=== PATIENT | female | born 1995 | race Caucasian/White ===

== ENCOUNTER 2020-04-02 15:28 | Outpatient (CLI) | payer BC, SELFPAY ==
[2020-04-02 16:13] LABS: SARS-CoV-2 Ag Negative (Negative)
== END 2020-04-02 15:29 | disposition home or self-care (01) ==
PROVIDERS: PCP Internal Medicine; Visit Provider Internal Medicine
DX: Z20.828 Contact with and (suspected) exposure to other viral communicable diseases (principal)
CPT/HCPCS: 87426

== ENCOUNTER 2020-04-22 16:27 | Outpatient (CLI) | payer BC, SELFPAY ==
[2020-04-24 12:24] LABS: SARS-CoV-2 RNA PCR Positive
== END 2020-04-22 16:28 | disposition home or self-care (01) ==
LOC: CHSLAB 16:29
PROVIDERS: PCP Internal Medicine; Visit Provider Internal Medicine
DX: U07.1 COVID-19 (principal)
CPT/HCPCS: 87635; C9803; U0003

== ENCOUNTER 2020-05-23 07:32 | Outpatient (CLI) | payer BC, SELFPAY ==
--- NOTE | ~2020-05-23 | US_ITS ---
EXAMINATION: US OB <= 14 weeks fetus DATE: 05/23/2020 08:36 INDICATION: Suppression of menstruation, first trimester TECHNIQUE: Real-time pelvic transabdominal and transvaginal ultrasound was performed. COMPARISON: None. FINDINGS: The uterus measures 12.6 x 8.0 x 10.6 cm. There is an intrauterine gestational sac. heart motion is identified measuring 150 beats per minute (bpm) by M-mode Doppler. The crown ru mp length measures 7.1 cm , which correlates with an estimated gestational age of 13 weeks and 2 day( s) (+/-) 8 day(s). The right ovary measures 2.9 x 1.3 x 1.6 cm. The left ovary measures 3.3 x 2.0 x 2.7 cm. There is nor mal vascular flow in the ovaries. There is no free fluid in the pelvis. IMPRESSION: 1. Live intrauterine with an estimated gestational age of 13 weeks and 2 day(s) (+/-) 8 day (s) and an estimated delivery date of 11/26/2020. Reviewed, dictated and finalized at location A. OFFICER IMPRESSION: 1. Live intrauterine with an estimated gestational age of 13 weeks an d 2 day(s) (+/-) 8 day(s) and an estimated delivery date of 11/26/2020.
[2020-05-23 07:49] LABS: Basophils Absolute Auto 0.06 K/mm3 (0.00-0.10); Basophils Percent Auto 0.6 % (0.0-1.0); Eosinophils Absolute Auto 0.07 K/mm3 (0.02-0.50); Eosinophils Percent Auto 0.7 % (1.0-6.0); Hematocrit 32.8 % (35.0-49.0); Hemoglobin 11.5 g/dL (12.0-15.0); Immature Granulocyte Absolute 0.03 K/mm3 (0.00-0.00); Immature Granulocyte Percent A 0.3 % (0.0-0.0); Lymphocytes Percent Auto 20.9 % (18.0-42.0); Mean Corpuscular HGB Conc 35.1 g/dL (32.0-36.0); Mean Corpuscular Hemoglobin 28.8 pg (27.0-31.0); Mean Corpuscular Volume 82.2 fL (78.0-102.0); Mean Platelet Volume 9.7 fl (9.2-11.8); Neutrophils Absolute Auto 7.2 K/mm3 (1.7-7.2); Neutrophils Percent Auto 71.5 % (50.0-70.0); Platelet Count Result 264 K/mm3 (150-420); Red Blood Count 3.99 M/mm3 (4.20-5.40); Red Cell Distribution Width 12.3 % (11.6-14.4); White Blood Count 10.1 K/mm3 (4.8-10.8)
[2020-05-25 21:21] LABS: RPR Screen Non-Reactive (Non-Reactive)
[2020-05-26 20:58] LABS: CMV IgG Antibody <0.60 U/mL (<0.60)
[2020-05-28 05:11] LABS: Hepatitis B Surface Antigen Nonreactive (Nonreactive)
== END 2020-05-23 07:33 | disposition home or self-care (01) ==
PROVIDERS: PCP Internal Medicine; Visit Provider Obstetrics & Gynecology
DX: N92.5 Other specified irregular menstruation (principal)
CPT/HCPCS: 36415; 76801; 84702; 85025; 86592; 86644; 86747; 86787; 87086; 87088

== ENCOUNTER 2020-07-04 14:52 | Outpatient (CLI) | payer BC, SELFPAY ==
--- NOTE | ~2020-07-04 | US_ITS ---
CORRECTED REPORT Procedure description corrected. [facility] [place] EXAMINATION: US OB >= 14 weeks Fetus DATE: 07/04/2020 17:44 INDICATION: anatomic survey. TECHNIQUE: Real-time ultrasound of the pelvis was performed. COMPARISON: Ultrasound 05/23/2020 FINDINGS: There is a single living fetus in vertex presentation. The placenta is anterior, 3.5 cm from the cervix. heart rate is 141 beats per minute (bpm). The amniotic fluid volume is subjectively normal. The following biometric data were obtained: Biparietal diameter (BPD): 4.4 cm; head circumference (HC): 17.0 cm; abdominal circumference (AC): 13.7 cm; femur length (FL): 3.2 cm. These measurements are concordant. Estimated weight is 296 g +/- 44 g, which correlates with 58th percentile when 11/26/20 is used as estimated date of delivery. As single measurements, these parameters are each equal to the following estimated gestational ages: BPD: 19 weeks 3 days. HC: 19 weeks 4 days. AC: 19 weeks 1 days. FL: 19 weeks 6 days. estimated gestational age based solely on measurements from this exam is 19 weeks 4 days +/- 1 weeks 3 days. The cerebral ventricles, cerebellum, cisterna magna, nuchal fold, and visualized portions of the spine are normal. The heart is normal. The diaphragm, stomach, kidneys, and bladder are normal. There are two umbilical arteries to yield a 3- vessel cord. The cord insertion is normal. IMPRESSION: 1. Single living fetus in vertex presentation. 2. Estimated weight is 296 g +/- 44 g, which correlates with 58th percentile when 11/26/20 is used as estimated date of delivery. This date was set by ultrasound on 05/23/20. 3. Normal anatomic survey. Reviewed, dictated and finalized at location A. ARTIST MTDD IMPRESSION: 1. Single living fetus in vertex presentation. 2. Estimated weight is 296 g +/- 44 g, which correlates with 58th percen tile when 11/26/20 is used as estimated date of delivery. This date was set by [address] on 05/23/20. 3. Normal anatomic survey.
[2020-07-04 16:35] LABS: HIV 1 P24 AG Negative (Negative); HIV 1/2 AB Negative (Negative)
[2020-07-08 10:02] LABS: Rubella IgG Antibody 2.53 Index
== END 2020-07-04 14:53 | disposition home or self-care (01) ==
LOC: CHSIMG 14:55
PROVIDERS: PCP Internal Medicine; Visit Provider Obstetrics & Gynecology
DX: Z34.92 Encounter for supervision of normal pregnancy, unspecified, second trimester (principal)
CPT/HCPCS: 36415; 76802; 76805; 86703; 86762; 86850; 86900; 86901

== ENCOUNTER 2020-09-05 08:19 | Outpatient (CLI) | payer BC, SELFPAY ==
[2020-09-05 08:34] LABS: Hematocrit 31.9 % (35.0-49.0); Hemoglobin 10.8 g/dL (12.0-15.0)
[2020-09-05 09:07] LABS: Glucose 1 Hour PP 50gm Dose 146 mg/dL (70-130)
[2020-09-05 09:21] LABS: HIV 1 P24 AG Negative (Negative); HIV 1/2 AB Negative (Negative)
== END 2020-09-05 08:20 | disposition home or self-care (01) ==
PROVIDERS: PCP Internal Medicine; Visit Provider Obstetrics & Gynecology
DX: Z34.92 Encounter for supervision of normal pregnancy, unspecified, second trimester (principal)
CPT/HCPCS: 36415; 82947; 85014; 85018; 86703

== ENCOUNTER 2020-09-12 07:05 | Outpatient (CLI) | payer BC, SELFPAY ==
[2020-09-12 07:40] LABS: Glucose Fasting Gestational 90 mg/dL (>/=95)
[2020-09-12 08:46] LABS: Glucose 1 Hour Gest 164 mg/dL (70-130)
[2020-09-12 11:20] LABS: Glucose 2 Hour Gest 150 mg/dL (<155)
[2020-09-12 11:25] LABS: Glucose 3 Hour Gest 120 mg/dL (>/=140)
== END 2020-09-12 07:06 | disposition home or self-care (01) ==
LOC: CHSLAB 07:08
PROVIDERS: PCP Internal Medicine; Visit Provider Obstetrics & Gynecology
DX: R73.09 Other abnormal glucose (principal)
CPT/HCPCS: 36415; 82951; 82952

== ENCOUNTER 2020-11-20 06:00 | Inpatient (IN) | payer BC, SELFPAY ==
[2020-11-20] VITALS (55 sets, daily range): BP systolic 121–148; BP diastolic 61–86; PULSE 67–105; RESP 16–20; TEMP 36.3–36.9; O2SAT 99–100; BMI 41.5
[2020-11-20] MEDS: LACTATED RINGERS 1,000 ML 125 ML IV CONT ×2 (06:30→07:30)
--- NOTE | 2020-11-20 06:39 | LDADM ---
This patient, Karis Sandoval, was admitted to Labor/Delivery/Recovery 103 on 11/20/20 at 06:00. Plans for labor, pain management and were discussed with patient. Patient/family oriented to hospital policies and general routines including ID bracelet, bed and alarms, visiting hours, pain management, procedures, bathroom and other care routines, personal items, smoking policy, room service/diet and guest tray routines, infant security routines, and visiting hours. Patient/Family are encouraged to report perceived risks to care and to ask questions if they do not understand what they are told or what they should do. See OBIX for further documentation.
[2020-11-20 06:51] LABS: Basophils Absolute Auto 0.1 K/mm3 (0.0-0.1); Basophils Percent Auto 0.6 % (0.2-1.2); Eosinophils Absolute Auto 0.1 K/mm3 (0-0.3); Eosinophils Percent Auto 0.6 % (0-4.4); Hematocrit 32.4 % (37.0-47.0); Hemoglobin 10.6 g/dL (12.0-15.0); Immature Granulocyte Absolute 0.05 K/mm3 (0.00-0.031); Immature Granulocyte Percent A 0.4 % (0-0.5); Lymphocytes Absolute Auto 2.62 K/mm3 (0.9-3.2); Lymphocytes Percent Auto 21.2 % (18.3-44.2); Mean Corpuscular HGB Conc 32.7 g/dl (32-36); Mean Corpuscular Hemoglobin 26.1 pg (26-34); Mean Corpuscular Volume 79.8 fl (80-100); Mean Platelet Volume 10.9 fl (7.4-10.4); Monocytes Percent Auto 7.9 % (2.6-8.5); Neutrophils Absolute Auto 8.6 K/mm3 (1.3-6.7); Neutrophils Percent Auto 69.3 % (45.5-73.1); Platelet Count Result 288 k/mm3 (150-375); Red Blood Count 4.06 M/mm3 (4.2-5.4); Red Cell Distribution Width 13.7 % (11.5-14.5); White Blood Count 12.3 K/mm3 (4.5-10.0)
--- NOTE | 2020-11-20 07:26 | P.PNAN_ITS ---
Anes - Initial Pre Proc Eval Date/Time: 11/20/20 07:26 Surgeon: Marciano Mitchell MD Pre Op Diagnosis: induction of labor Patient Data Age: 25 Gender: F Height: 1.7 m Weight: 120.5 kg Last Vital Signs Temp 36.9 C 11/20/20 06:30 Pulse 87 11/20/20 06:46 BP 133/77 11/20/20 06:46 Allergies Allergy/AdvReac Type Severity Reaction Status Date / Time No Known Allergies Allergy Unverified 09/24/18 13:03 Home Medications Medication Instructions Recorded Confirmed Type PNV cmb#95-ferrous fumarate-FA 1 tablet PO DAILY 11/02/20 11/20/20 History [] sertraline [Zoloft] 50 mg PO DAILY 11/20/20 11/20/20 History Laboratory Tests 11/20/20 11/20/20 06:33 06:33 WBC 12.3 K/mm3 H K/mm3 (4.5-10.0) RBC 4.06 M/mm3 L M/mm3 (4.2-5.4) Hgb 10.6 g/dL L g/dL (12.0-15.0) Hct 32.4 % L % (37.0-47.0) MCV 79.8 fl L fl (80-100) MCH 26.1 pg pg (26-34) MCHC 32.7 g/dl g/dl (32-36) RDW 13.7 % % (11.5-14.5) Plt Count 288 k/mm3 k/mm3 (150-375) MPV 10.9 fl H fl (7.4-10.4) Immature Gran % (Auto) 0.4 % % (0-0.5) Neut % (Auto) 69.3 % % (45.5-73.1) Lymph % (Auto) 21.2 % % (18.3-44.2) [place] % (Auto) 7.9 % % (2.6-8.5) Eos % (Auto) 0.6 % % (0-4.4) Baso % (Auto) 0.6 % % (0.2-1.2) Lymph # (Auto) 2.62 K/mm3 K/mm3 (0.9-3.2) [place] # (Auto) 1.0 K/mm3 H K/mm3 (0.1-0.6) Eos # (Auto) 0.1 K/mm3 K/mm3 (0-0.3) Baso # (Auto) 0.1 K/mm3 K/mm3 (0.0-0.1) Abs Immat Gran (auto) 0.05 K/mm3 H K/mm3 (0.00-0.031) Absolute Neuts (auto) 8.6 K/mm3 H K/mm3 (1.3-6.7) Absolute Nucleated RBC 0.0 K/mm3 K/mm3 (0.0-0.012) Nucleated RBC % 0.0 % % (0.0-0.2) RPR Pending Patient hx anesthesia problems: none Family hx anesthesia problems: none [facility] Family History Family History (Updated 11/02/20 @ 12:29 by Otto Allred RN) Mother Diabetes mellitus Grandparent Diabetes mellitus Other Breast cancer Father Heart disease Social History Social History Smoking status: Never smoker Substance use: never Gender identity (if verbalized by the patient): Female Spiritual care concerns: No Anes - Eval Final PreProcedure Day of Procedure 11/20/20 07:26 Patient weight: obese Heart: regular rate and rhythm Lungs: clear to auscultation and normal air movement Airway: Mallampati scale class II Neurological: alert and oriented Last oral intake: >/= 8 hours ASA classification: III Emergent: no Anesthetic plan: proceed Anesthesia type and monitoring: regional epidural Informed Consent: The patient's anesthetic plan and its attendant risks and benefits were discussed with the patient/family/POA. Questions were solicited and answers provided to the satisfaction of the patient/family/POA
[2020-11-20] MEDS: OXYTOCIN 30 UNITS/NS 500 ML 30 UNITS/500 ML BAG IV CONT (08:04)
--- NOTE | 2020-11-20 10:03 | WPDHPUPDATE1 ---
History and Physical Update Update Date/Time: 11/20/20 10:03 History and Physical has been reviewed, including an updated exam of the patient. There are NO changes in the patient's condition. Risks, benefits, and alternatives have been discussed and questions answered. Patient agrees to proceed with procedure.
--- NOTE | 2020-11-20 10:03 | WPDOBADMIT ---
Obstetrics - Admit Note Admission Note: record reviewed. No pertinent additions to the history and/or any subsequent changes in the physical findings that are not consistent with the expected course of the were found. Additions to the history and/or subsequent changes in the physical findings follow. None.
--- NOTE | 2020-11-20 10:03 | PM.OBPRVD ---
OB - Delivery Note Procedure Route of delivery: Episiotomy description: None Laceration Description: None Specimen: No Quantitative Blood Loss (ml): 300 Anesthesia type: Epidural Disposition: floor Narrative: Patient prepped and draped in usual manner for this procedure. Maternal expulsive efforts readily delivered vertex and the rest of baby without difficulty. Cord was clamped and cut and the placenta delivered spontaneously. Cervix vagina vulva were inspected with no lacerations or tears. Uterus was well contracted with no significant bleeding. At this point procedure was considered terminated with immediate postoperative condition mother and baby both excellent. [place] Baby Weeks of gestation at delivery: 39 Infant gender: Female Weight (pounds): 8 Weight (ounces): 6 score one minute: 8 score five minutes: 9
[2020-11-20] MEDS: OXYTOCIN 30 UNITS/NS 500 ML 30 UNITS/500 ML BAG 125 UNITS IV CONT (10:24)
[2020-11-20 10:31] LABS: Rapid Plasma Reagin Non-Reactive (NonReactive)
[2020-11-20] MEDS: IBUPROFEN 600 MG TABLET PO ×2 (11:51→20:15)
[2020-11-20] MEDS: WITCH HAZEL 40 PADS 1 PAD TOPICAL (11:56)
[2020-11-20] MEDS: BENZOCAINE 20% AER SPR (*SP) 56 GM CAN 1 SPRAY TOPICAL (11:56)
--- NOTE | 2020-11-20 13:10 | PC.NURSE ---
Mother called out for assist with feeding, reporting first child a few weeks and low milk supply. Infant is able to freely thrust tongue past gum ridge. Skin is intact on both nipples, dried colostrum noted bilaterally. Reviewed infant feeding cues, frequencies, duration of feedings, feeding elimination flow sheet, and signs of adequate intake. Demonstrated stimulation techniques to wake infant for feeding. Assisted with to breast. Reviewed positioning/alignment in cross cradle, holding breast in ?U? hold and guided asymmetrical latch on. able to latch correctly. Infant nursed eagerly, with steady draws and frequent swallowing noted. Suggested mother stimulate while feeding to increase stimulate, increase intake and to assist with maintaining deep latch. Reviewed signs of a correct latch, effective nursing and suck swallow ratio. Infant would slip to shallow latch, mother reports tenderness. Demonstrated how to adjust latch more deeply while feeding. Mother reports she can feel change in latch and has no tenderness. Nipple care reviewed of lanolin after feedings, warm compresses and gel pads as needed. Instructed mother to call out for RN assistance if she is unable to latch for feeding or she has discomfort with nursing.
--- NOTE | 2020-11-20 13:45 | PC.NURSE ---
Mother reported bleeding to right nipple. Area noted to have dried colostrum and small amount of skin off with nursing. Reviewed nipple care of lanolin and warm compress as needed several times per day.
[2020-11-20] MEDS: ACETAMINOPHEN 325 MG TABLET 650 MG PO (16:16)
[2020-11-20] MEDS: DOCUSATE SODIUM 100 MG CAPSULE PO (16:16)
[2020-11-20] MEDS: SERTRALINE HCL 50 MG TABLET PO (21:15)
[2020-11-21] MEDS: ACETAMINOPHEN 325 MG TABLET 650 MG PO (01:17)
[2020-11-21] MEDS: IBUPROFEN 600 MG TABLET PO ×3 (04:45→20:25)
[2020-11-21 08:25] VITALS: BP 136/83; PULSE 75; RESP 18; TEMP 36.8; O2SAT 100
[2020-11-21 08:45] LABS: Hematocrit 30.8 % (37.0-47.0); Hemoglobin 9.9 g/dL (12.0-15.0)
[2020-11-21 09:00] VITALS: PULSE 75; RESP 18; O2SAT 100
[2020-11-21] MEDS: POLYSACCHARIDE IRON COMPLEX 150 MG CAPSULE PO (09:17)
[2020-11-21] MEDS: DOCUSATE SODIUM 100 MG CAPSULE PO ×2 (09:18→20:25)
[2020-11-21] MEDS: MULTIVIT/MIN/PREN/FOL AC/IRON TABLET 1 TAB PO (09:18)
--- NOTE | 2020-11-21 09:45 | PC.NURSE ---
Mother reports is going well, she is able to independently latch infant with appropriate positioning/alignment. She denies any nipple discomfort, is feeding as required and waking infant to feed if needed. Requested mother call out for assist as needed.
--- NOTE | 2020-11-21 12:14 | WPDANLDPN2 ---
Anes-Prog Note L&D Date/Time: 11/21/20 12:14 Comfortable throughout: labor and delivery Neuraxial method: epidural Epidural/Spinal procedure site: clean & non-tender Neuro status: Neuro function grossly intact. Cardiovascular status: normal Respiratory status: normal Airway patency: baseline Mental status: baseline Post-Op hydration status: normal Vital Signs: Last Vital Signs Temp 36.8 C 11/21/20 08:25 Pulse 75 11/21/20 09:00 Resp 18 11/21/20 09:00 BP 136/83 11/21/20 08:25 Pulse Ox 100 11/21/20 09:00 Pain score (VAS): 05/19 Post-procedural complaints: none Patient feedback: Patient satisfied with anesthetic care.
--- NOTE | 2020-11-21 13:21 | PM.OBDSVD ---
DS: Admitting Diagnosis Admitting Diagnosis Admitting Diagnosis: OB - DS: Summary OB Procedures : None OB Procedures Intrapartum: Spontaneous Vag Delivery OB Procedures: : None Time Spent with Patient Time attestation: Total time spent providing and/or coordinating discharge services: DS: Data Data Completed and Pending Labs on day of discharge: Labs from last 24 hours 11/21/20 08:15 Hgb 9.9 L Hct 30.8 L Discharge Plan Discharge Discharging Clinician: Marciano Mitchell Anticipated Discharge Date/Time: 11/22/20 08:00 Patient Disposition: Home, Self-Care Activity: as tolerated Diet: as tolerated Patient Instructions: Antibiotic Form Stand Alone Forms: General Discharge Information Follow-up/Referrals: Marciano Mitchell MD [Physician] - 3 Weeks Discharge Medications: New ibuprofen 600 mg Tablet 600 mg PO Q6H PRN (Reason: Cramping) Qty: 30 RF: 0 Continued PNV cmb#95-ferrous fumarate-FA [] 28 mg iron- 800 mcg Tablet 1 tablet PO DAILY RF: 0 sertraline [Zoloft] 50 mg Tablet 50 mg PO DAILY RF: 0 Date of admission: 11/20/20 06:00 Primary Care Provider: Isaac Floyd Admitting Provider: Marciano Mitchell Attending physician on admission: Marciano Mitchell Condition: Stable
[2020-11-21 20:25] VITALS: BP 128/77; PULSE 76; RESP 16; TEMP 36.7
[2020-11-21] MEDS: SERTRALINE HCL 50 MG TABLET PO (20:25)
--- NOTE | 2020-11-22 08:45 | PC.NURSE ---
Observed mother is able to independently latch with appropriate positioning/alignment. She denies any nipple discomfort, is feeding as required and waking infant to feed if needed. has had at least 8 effective feedings in the past 24 hours, and is currently meeting outcomes for weight, jaundice and feeding frequencies. Infant did go past 12 hours without a wet diaper. Suggested mother supplement 15mls after each feeding until her milk is in and output increases. Mother had an issue with low milk supply with first child. Mother states she feels confident to continue effective at home. Reviewed transition to breast milk, signs of adequate intake, and engorgement/relief. Instructed to call ICP if intake/output less than required. Reviewed regular medications mother is taking. Information provided per Danielle. Reviewed community resources on the [facility] website and in the Mom/Baby guide. Information on outpatient services provided. Mother has no further questions at this time.
[2020-11-22] MEDS: MULTIVIT/MIN/PREN/FOL AC/IRON TABLET 1 TAB PO (09:42)
[2020-11-22] MEDS: POLYSACCHARIDE IRON COMPLEX 150 MG CAPSULE PO (09:42)
[2020-11-22] MEDS: DOCUSATE SODIUM 100 MG CAPSULE PO (09:42)
[2020-11-22] MEDS: IBUPROFEN 600 MG TABLET PO (09:43)
[2020-11-22 10:00] VITALS: BP 146/80; PULSE 87; RESP 18; TEMP 36.4; O2SAT 99
[2020-11-22 11:45] VITALS: PULSE 76; RESP 16; O2SAT 100
[2020-11-25 11:28] VITALS: BP 132/82; PULSE 96; RESP 20; TEMP 37.1; O2SAT 100
--- NOTE | 2020-11-26 07:18 | PM.OBDSVD ---
DS: Admitting Diagnosis Admitting Diagnosis Admitting Diagnosis: OB - DS: Summary OB Procedures : None OB Procedures Intrapartum: Spontaneous Vag Delivery OB Procedures: : None Time Spent with Patient Time attestation: Total time spent providing and/or coordinating discharge services: Discharge Plan Discharge Consulting providers: Lexa Hernandez Discharging Clinician: Marciano Mitchell Anticipated Discharge Date/Time: 11/22/20 08:00 Patient Disposition: Home, Self-Care Activity: as tolerated Diet: as tolerated Discharge Instructions: Education: Mom and Baby Guide Given to: Mother Follow-Up: Call your delivering provider's office for an appointment to be seen in: 3 weeks Mom and baby should come to the [facility] for the follow-up appointment. Appointment Date/Time:Wednesday, November 25, 2020 at 11:00 am What to expect at your follow-up visit: Blood Pressure Check Physical Assessment Call [phone] if you are unable to keep your appointment time. BREAST CARE: * Wear a snug supportive bra. * For engorgement discomfort: Breast Feeding: * Apply warm moist washcloths * Express milk as needed to relieve engorgement * Wear loose clothing * For sore nipples: * Identify correct latch-on * Apply warm moist washcloths before and after nursing * Air dry nipples after nursing * May apply Lansinoh cream to nipples EPISIOTOMY/PERINEAL CARE: * Until bleeding stops, use your maria e bottle after urinating * Change your pad frequently throughout the day * You may take sitz baths several times a day (fill your bathtub with warm water and soak for 20 minutes.) Do NOT bathe in the water * No tub baths until seen by your physician - You may shower ACTIVITY: * Rest as much as possible. * Do not exercise or lift anything heavier than your baby (such as laundry or other children.) * Avoid stairs or driving as much as possible. * Do not put anything into the vagina. No douching, tampons, or sexual activity until seen by physician. NOTIFY PHYSICIAN IF YOU HAVE ANY QUESTIONS OR IF ANY OF THE FOLLOWING SYMPTOMS OCCUR: * If your vaginal area becomes red, swollen, or more painful than what you have experienced in the hospital. * If your vaginal bleeding becomes foul smelling. * If your vaginal bleeding becomes more heavy than a period or if your bleeding changes from pink to bright red. However, you may pass an occasional walnut-sized clot once or twice for the first week . * If you experience a sharp, shooting pain in your calves. * If you discover a hard, reddened area on your breast or if you experience flu-like symptoms. DIET: * Eat regular, well-balanced meals. * Drink plenty of fluids daily. If , drink to thirst. Patient Instructions: Vaginal Delivery (DC) Stand Alone Forms: General Discharge Information Follow-up/Referrals: Marciano Mitchell MD [Physician] - 3 Weeks Discharge Medications: New ibuprofen 600 mg Tablet 600 mg PO Q6H PRN (Reason: Cramping) Qty: 30 RF: 0 Continued PNV cmb#95-ferrous fumarate-FA [] 28 mg iron- 800 mcg Tablet 1 tablet PO DAILY RF: 0 sertraline [Zoloft] 50 mg Tablet 50 mg PO DAILY RF: 0 Date of admission: 11/20/20 06:00 Primary Care Provider: Isaac Floyd Admitting Provider: Marciano Mitchell Attending physician on admission: Marciano Mitchell Condition: Stable
== END 2020-11-22 14:05 | disposition home or self-care (01) | DRG 807 ==
LOC: ANHLDR 06:05 → ANHOB2 12:18
PROVIDERS: Admitting Provider Obstetrics & Gynecology; PCP Internal Medicine; Visit Provider Obstetrics & Gynecology
DX: O99.214 Obesity complicating childbirth (principal); Z37.0 Single live birth; Z3A.39 39 weeks gestation of pregnancy; E66.9 Obesity, unspecified; O62.3 Precipitate labor
CPT/HCPCS: 36415; 85014; 85018; 85025; 86592; 86850; 86900; 86901; A9270; J2590; J2795; J7120

== ENCOUNTER 2021-05-15 13:44 | Outpatient (CLI) | payer BC, SELFPAY ==
[2021-05-15 15:13] LABS: Influenza Control Valid (Valid); SARS-CoV-2 Ag Negative (Negative)
== END 2021-05-15 13:45 | disposition home or self-care (01) ==
LOC: CHSLAB 13:46
PROVIDERS: PCP Internal Medicine; Visit Provider Internal Medicine
DX: J06.9 Acute upper respiratory infection, unspecified (principal); Z20.822 Contact with and (suspected) exposure to COVID-19
CPT/HCPCS: 87081; 87426; 87804; 87880; C9803

== ENCOUNTER 2021-12-26 16:05 | Outpatient (CLI) | payer BC, SELFPAY | END 2021-12-26 16:06 | disposition home or self-care (01) | LOC: CHSLAB 16:11 | PROVIDERS: PCP Internal Medicine; Visit Provider Obstetrics & Gynecology Gynecology | DX: O26.851 Spotting complicating pregnancy, first trimester (principal) | CPT/HCPCS: 36415; 84702; 86850; 86900; 86901 ==

== ENCOUNTER 2021-12-28 17:00 | Outpatient (CLI) | payer BC, SELFPAY | END 2021-12-28 17:01 | disposition home or self-care (01) | PROVIDERS: PCP Internal Medicine; Visit Provider Obstetrics & Gynecology Gynecology | DX: O26.851 Spotting complicating pregnancy, first trimester (principal) | CPT/HCPCS: 36415; 84702 ==

== ENCOUNTER 2021-12-31 12:15 | Outpatient (CLI) | payer BC, SELFPAY ==
--- NOTE | ~2021-12-31 | US_ITS ---
EXAMINATION: US OB <=14 wk fetus w TV DATE: 12/31/2021 12:59 INDICATION: Missed . Assess for retained products of conception. TECHNIQUE: Real-time pelvic ultrasound utilizing both a transvaginal and transabdominal probe was pe rformed. The interpreting radiologist was not present for the study. COMPARISON: 12/29/2021 FINDINGS: The uterus measures 9.2 x 5.7 x 6.4 cm. The previously seen gestational sac and fetus are no longer v isualized consistent with interval spontaneous . Persistent thickened heterogeneous endometri al complex measuring up to 1.8 cm. There is vascular flow within a solid posterior component of the e ndometrial complex consistent with retained products of conception. On cine grayscale imaging, much o f the endometrial complex appears filled with mobile echogenic material which could represent either additional retained products of conception or blood. The right ovary is not visualized. The left ovar y measures 2.9 x 1.9 x 1.6 cm. There is no free fluid in the pelvis. IMPRESSION: 1. Thickened endometrial complex without discernible gestational sac and with both mobile echogenic m aterial as well as some vascular solid soft tissue component posteriorly within the endometrial compl ex consistent with interval spontaneous with retained products of conception. Reviewed, dictated and finalized at location A. IMPRESSION: 1. Thickened endometrial complex without discernible gestational sac and with b oth mobile echogenic material as well as some vascular solid soft tissue compon ent posteriorly within the endometrial complex consistent with interval spontan eous with retained products of conception.
== END 2021-12-31 12:16 | disposition home or self-care (01) ==
LOC: CHSIMG 12:16
PROVIDERS: PCP Internal Medicine; Visit Provider Obstetrics & Gynecology
DX: O02.1 Missed abortion (principal)
CPT/HCPCS: 76801; 76817

== ENCOUNTER 2022-01-01 01:41 | Day surgery (SDC) | payer BC, SELFPAY ==
[2021-12-30 10:41] VITALS: BMI 40.7
--- NOTE | 2021-12-30 10:46 | PC.NURSE ---
Report to the Outpatient Waiting Room, entrance under the green pavilion located off [facility], at time 0630 on date 01/01/22. OR Time: 0830. - You and your visitor will be asked to self-screen and do not enter if you have any COVID symptoms. - Only one visitor and NO children visitors are allowed at this time. - The patient visitor is requested to leave or wait in car when not with patient due to restrictions. - A mask is required within the hospital. Patients may have clear liquids (water, carbonated beverages, clear teas, apple juice) until 3 hours prior to surgery with a maximum of 20 ounces. - No food from midnight until time of surgery Take the following medications with a SIP of water the morning of surgery: N/A Medications to discontinue per physician: N/A Date to take last dose: N/A Please no make-up, nail sl[place], hairspray, perfume, deodorant, or body powder the day of surgery. No jewelry (including any body piercings) or valuables the day of surgery, leave them at home. Please take a shower or bath the night before, or the morning of, surgery with an antibacterial soap. Wear comfortable, loose fitting clothing. - Jewelry must be removed prior to entering the operating room. Rings and piercings that are not removed may be cut off. - The hospital will not accept responsibility for valuables. - Please leave all valuables, including medications, at home the day of surgery. If you are going home after surgery, a licensed shuttle van driver must drive you home. - NO public transportation without another adult. - We recommend that an adult stay with you for 24 hours following discharge. - We also recommend that you do not drive, make important decision, drink alcoholic beverages, or take any drugs that were not prescribed by your health care provider for at least 24 hours after your discharge time. Follow any additional instructions given to you from your surgeon. If you or anyone in your household have experienced Covid symptoms in the past week, please notify your surgeon or the nurse liaison at the phone number below for possible testing. Telephone instructions given to PT - AARTI KUHN and asked if any additional questions and then verbalized understanding. Patient advised to call surgeon office or pre surgery nurse liaison [phone] if any additional questions.
--- NOTE | 2021-12-31 13:20 | WPDANESEPPF ---
Anes - Initial Pre Proc Eval Procedure: Operation Date: 01/01/22 08:30 Proposed Procedures p Suction Dilation and Curettage - Marciano Mitchell MD Date/Time: 12/31/21 13:20 Surgeon: Marciano Mitchell MD Pre Op Diagnosis: missed ab Patient Data Age: 26 Gender: F Height: 1.7 m Weight: 117.93 kg Allergies Allergy/AdvReac Type Severity Reaction Status Date / Time No Known Allergies Allergy Unverified 01/01/22 06:45 Home Medications Medication Instructions Recorded Confirmed Type No Home Medications 12/30/21 01/01/22 History Patient hx anesthesia problems: none Family hx anesthesia problems: none Results Review: All pre-operative results and documents have been reviewed as part of the pre-operative evaluation. [facility] Past Medical History Medical History AUDREY positive Morbid obesity with BMI of 40.0-44.9, adult Suppression of menstruation Surgical History Surgical History History of gynecological procedure (03/08/19) dick iud insertion History of gynecological procedure (01/25/20) dick iud removal Family History Family History Mother Diabetes mellitus Grandparent Diabetes mellitus Other Breast cancer Father Heart disease Social History Social History Smoking status: Never smoker Alcohol intake: never Alcohol use details: RARE Substance use: never Substance use type: does not use Living arrangements: with family Additional living arrangements comments: Additional occupation/education comments: engineering Gender identity (if verbalized by the patient): Female Sexual Orientation (if Verbalized by the Patient): Straight or Heterosexual Spiritual care concerns: No Anes - Eval Final PreProcedure Day of Procedure 12/31/21 13:20 Patient weight: morbidly obese Heart: regular rate and rhythm Lungs: clear to auscultation and normal air movement Airway: Mallampati scale class II Neurological: alert and oriented Last oral intake: >/= 8 hours ASA classification: III Emergent: no Anesthetic plan: proceed Anesthesia type and monitoring: general GIVS and LMA Results Review: All pre-operative results and documents have been reviewed as part of the pre-operative evaluation. Informed Consent: The patient's anesthetic plan and its attendant risks and benefits were discussed with the patient/family/POA. Questions were solicited and answers provided to the satisfaction of the patient/family/POA.
--- NOTE | 2021-12-31 15:50 | PM.IMHP ---
H&P: HPI History of Present Illness Date/Time: 12/31/21 15:50 26-year-old female 3 para 2 0 now 1 2 female presents for evaluation and treatment for incomplete miscarriage. Found to have 8 week intrauterine with no cardiac activity earlier this week since then has had a fairly significant amount of bleeding and passing of tissue. Ultrasound they prior to procedure reveals gestational sac to have been passed with a moderate amount of retained products of conception. We discussed expected management versus proceeding with suction curettage remove the remaining tissue and she opts for suction curettage which will be performed today. Chief Complaint: Incomplete miscarriage Review of Systems Review of Systems: All systems reviewed & are unremarkable except as noted in HPI and below PMFSH Past Medical History Medical History AUDREY positive Morbid obesity with BMI of 40.0-44.9, adult Suppression of menstruation Surgical History Surgical History History of gynecological procedure (03/08/19) dick iud insertion History of gynecological procedure (01/25/20) dick iud removal Family History Family History Mother Diabetes mellitus Grandparent Diabetes mellitus Other Breast cancer Father Heart disease Social History Social History Smoking status: Never smoker Alcohol intake: current Alcohol use details: RARE Substance use: never Substance use type: does not use Additional living arrangements comments: Additional occupation/education comments: engineering Gender identity (if verbalized by the patient): Female Sexual Orientation (if Verbalized by the Patient): Straight or Heterosexual Spiritual care concerns: No Meds Home Medications and Allergies Home Medications Medication Instructions Recorded Confirmed Type No Home Medications 12/30/21 12/30/21 History Allergies Allergy/AdvReac Type Severity Reaction Status Date / Time No Known Allergies Allergy Unverified 12/30/21 10:41 Exam Const: General: cooperative, healthy appearing and comfortable Resp: Effort & Inspection: normal respiratory effort Auscultation: clear to auscultation bilaterally Cardio: Rate: regular rate Rhythm: regular rhythm GI: Inspection: normal to inspection Auscultation: normal bowel sounds : Speculum Exam - Vagina: other (Old blood in vault) Speculum Exam - Cervix: normal appearance of the cervix Bimanual exam- vagina & uterus: enlarged (8-10 week size) Bimanual Exam- Adnexa, other: normal adnexae Assessment and Plan Assessment and plan (1) Incomplete miscarriage: Code(s): O03.4 - Incomplete spontaneous without complication Status: Acute Assessment and Plan: This is a first-trimester miscarriage, will proceed with suction curettage.
[2022-01-01] MEDS: ACETAMINOPHEN 500 MG TABLET 1000 MG PO (07:26)
[2022-01-01 07:39] VITALS: BP 130/70; PULSE 103; RESP 18; TEMP 36.9; O2SAT 98
[2022-01-01] MEDS: LACTATED RINGERS 1,000 ML 30 ML IV CONT (07:39)
--- NOTE | 2022-01-01 08:23 | WPDHPUPDATE1 ---
History and Physical Update Update Date/Time: 01/01/22 08:23 History and Physical has been reviewed, including an updated exam of the patient. There are NO changes in the patient's condition. Risks, benefits, and alternatives have been discussed and questions answered. Patient agrees to proceed with procedure.
[2022-01-01] MEDS: MIDAZOLAM HCL (*CRX) 2 MG/2 ML VIAL IV PUSH (08:26)
[2022-01-01] MEDS: LIDOCAINE HCL 1% PF 30 ML VIAL 10 ML INFILTRATE (08:40)
[2022-01-01 08:55] VITALS: BP 107/61; PULSE 102; RESP 12; O2SAT 99
[2022-01-01 09:25] VITALS: BP 107/61; PULSE 87; RESP 16; O2SAT 100
[2022-01-01 09:55] VITALS: BP 121/78; PULSE 95; RESP 16
--- NOTE | 2022-01-01 10:21 | W.PM.PROC2 ---
Procedure Note - Detailed Date of Procedure 01/01/22 Pre-op Diagnosis Incomplete miscarriage in the 1st trimester Post-op Diagnosis Same Procedure Performed Suction curettage Surgeon Marciano Mitchell MD Anesthesia MAC Findings Moderate amount of retained products of conception Description of Procedure Patient was prepped and draped in usual manner for this procedure. Cervix dilated to allow a 9 suction placed. Once this was placed suction was used to remove tissue. Sharp curette was then passed throughout the entirety of the uterine cavity and no tissue was noted and was no significant bleeding. At this Point the procedure was considered terminated patient was sent to recovery room in stable condition. Estimated Blood Loss 10 Drains No Packing No Pathology Yes Complications No immediate complications Condition Stable Disposition PACU [facility] Billing Surgery - Charge Forward: Surgery Billing
== END 2022-01-01 10:00 | disposition home or self-care (01) ==
PROVIDERS: PCP Internal Medicine; Visit Provider Obstetrics & Gynecology
PROC: (CPT 59812; principal; 2022-01-01 08:30)
DX: O03.4 Incomplete spontaneous abortion without complication (principal); E66.01 Morbid (severe) obesity due to excess calories; Z68.41 Body mass index [BMI] 40.0-44.9, adult
CPT/HCPCS: 59812; 88305; A9270; J2250; J2704; J3010; J7120

== ENCOUNTER 2022-03-17 15:42 | Outpatient (CLI) | payer BC, SELFPAY | END 2022-03-17 15:43 | disposition home or self-care (01) | LOC: CHSLAB 15:44 | PROVIDERS: PCP Internal Medicine; Visit Provider Obstetrics & Gynecology | DX: N92.6 Irregular menstruation, unspecified (principal) | CPT/HCPCS: 36415; 84702 ==

== ENCOUNTER 2022-03-19 16:27 | Outpatient (CLI) | payer BC, SELFPAY | END 2022-03-19 16:28 | disposition home or self-care (01) | LOC: CHSLAB 16:29 | PROVIDERS: PCP Internal Medicine; Visit Provider Obstetrics & Gynecology | DX: N92.6 Irregular menstruation, unspecified (principal) | CPT/HCPCS: 36415; 84702 ==

== ENCOUNTER 2022-03-26 16:13 | Outpatient (CLI) | payer BC, SELFPAY | END 2022-03-26 16:14 | disposition home or self-care (01) | LOC: CHSLAB 16:15 | PROVIDERS: PCP Internal Medicine; Visit Provider Obstetrics & Gynecology | DX: N92.6 Irregular menstruation, unspecified (principal) | CPT/HCPCS: 36415; 84702 ==

== ENCOUNTER 2022-04-15 07:35 | Outpatient (CLI) | payer BC, SELFPAY ==
[2022-04-15 09:29] LABS: Basophils Absolute Auto 0.06 K/mm3 (0.00-0.10); Basophils Percent Auto 0.5 % (0.0-1.0); Eosinophils Absolute Auto 0.06 K/mm3 (0.02-0.50); Eosinophils Percent Auto 0.5 % (1.0-6.0); Hematocrit 34.8 % (35.0-49.0); Immature Granulocyte Absolute 0.05 K/mm3 (0.00-0.00); Immature Granulocyte Percent A 0.4 % (0.0-0.0); Lymphocytes Absolute Auto 1.99 K/mm3 (1.10-4.50); Lymphocytes Percent Auto 17.2 % (18.0-42.0); Mean Corpuscular HGB Conc 34.5 g/dL (32.0-36.0); Mean Corpuscular Hemoglobin 28.8 pg (27.0-31.0); Mean Corpuscular Volume 83.7 fL (78.0-102.0); Mean Platelet Volume 9.8 fl (9.2-11.8); Monocytes Absolute Auto 0.62 K/mm3 (0.10-0.90); Monocytes Percent Auto 5.4 % (2.0-11.0); Neutrophils Absolute Auto 8.8 K/mm3 (1.7-7.2); Platelet Count Result 300 K/mm3 (150-420); Red Blood Count 4.16 M/mm3 (4.20-5.40); Red Cell Distribution Width 12.4 % (11.6-14.4); White Blood Count 11.6 K/mm3 (4.8-10.8)
[2022-04-15 10:20] LABS: HIV 1 P24 AG Negative (Negative); HIV 1/2 AB Negative (Negative)
[2022-04-15 10:41] LABS: Glucose 1 Hour PP 50gm Dose 121 mg/dL (70-130)
[2022-04-18 16:27] LABS: RPR Screen Non-Reactive (Non-Reactive)
[2022-04-19 11:35] LABS: Rubella IgG Antibody 3.09 Index
[2022-04-20 10:58] LABS: Hepatitis B Surface Antigen Nonreactive (Nonreactive)
[2022-04-20 15:45] LABS: CMV IgG Antibody <0.60 U/mL (<0.60)
== END 2022-04-15 07:36 | disposition home or self-care (01) ==
LOC: CHSLAB 07:36
PROVIDERS: PCP Internal Medicine; Visit Provider Obstetrics & Gynecology
DX: N91.2 Amenorrhea, unspecified (principal)
CPT/HCPCS: 36415; 82947; 85025; 86592; 86644; 86703; 86747; 86762; 86787; 86850; 86900; 86901; 87086

== ENCOUNTER 2022-09-01 07:19 | Outpatient (CLI) | payer BC, SELFPAY ==
[2022-09-01 08:34] LABS: Basophils Absolute Auto 0.05 K/mm3 (0.00-0.10); Basophils Percent Auto 0.4 % (0.0-1.0); Eosinophils Absolute Auto 0.07 K/mm3 (0.02-0.50); Eosinophils Percent Auto 0.6 % (1.0-6.0); Hematocrit 31.5 % (35.0-49.0); Hemoglobin 10.8 g/dL (12.0-15.0); Immature Granulocyte Absolute 0.05 K/mm3 (0.00-0.00); Immature Granulocyte Percent A 0.4 % (0.0-0.0); Lymphocytes Absolute Auto 1.87 K/mm3 (1.10-4.50); Lymphocytes Percent Auto 16.6 % (18.0-42.0); Mean Corpuscular HGB Conc 34.3 g/dL (32.0-36.0); Mean Corpuscular Volume 81.6 fL (78.0-102.0); Mean Platelet Volume 9.8 fl (9.2-11.8); Monocytes Absolute Auto 0.42 K/mm3 (0.10-0.90); Monocytes Percent Auto 3.7 % (2.0-11.0); Neutrophils Absolute Auto 8.8 K/mm3 (1.7-7.2); Neutrophils Percent Auto 78.3 % (50.0-70.0); Platelet Count Result 279 K/mm3 (150-420); Red Blood Count 3.86 M/mm3 (4.20-5.40); Red Cell Distribution Width 12.7 % (11.6-14.4); White Blood Count 11.3 K/mm3 (4.8-10.8)
[2022-09-01 09:08] LABS: Glucose 1 Hour PP 50gm Dose 167 mg/dL (70-130)
[2022-09-01 09:17] LABS: HIV 1 P24 AG Negative (Negative); HIV 1/2 AB Negative (Negative)
== END 2022-09-01 07:20 | disposition home or self-care (01) ==
LOC: CHSLAB 07:20
PROVIDERS: PCP Internal Medicine; Visit Provider Obstetrics & Gynecology
DX: Z34.90 Encounter for supervision of normal pregnancy, unspecified, unspecified trimester (principal)
CPT/HCPCS: 36415; 82947; 85025; 86703

== ENCOUNTER 2022-09-02 07:07 | Outpatient (CLI) | payer BC, SELFPAY ==
[2022-09-02 08:11] LABS: Glucose Fasting Gestational 90 mg/dL (>/=95)
[2022-09-02 08:42] LABS: Glucose 1 Hour Gest 196 mg/dL (70-130)
[2022-09-02 09:28] LABS: Glucose 2 Hour Gest 163 mg/dL (<155)
[2022-09-02 10:39] LABS: Glucose 3 Hour Gest 104 mg/dL (>/=140)
== END 2022-09-02 07:08 | disposition home or self-care (01) ==
LOC: CHSLAB 07:09
PROVIDERS: PCP Internal Medicine; Visit Provider Obstetrics & Gynecology
DX: Z34.90 Encounter for supervision of normal pregnancy, unspecified, unspecified trimester (principal)
CPT/HCPCS: 36415; 82951; 82952

== ENCOUNTER 2022-11-08 02:39 | Inpatient (IN) | payer BC, SELFPAY ==
[2022-11-08] VITALS (39 sets, daily range): BP systolic 95–155; BP diastolic 45–86; PULSE 26–138; RESP 16–18; TEMP 36.9–37.2; O2SAT 85–100; BMI 40.4
[2022-11-08] MEDS: LACTATED RINGERS 1,000 ML 125 ML IV CONT (03:00)
[2022-11-08 03:07] LABS: Basophils Absolute Auto 0.1 K/mm3 (0.0-0.1); Basophils Percent Auto 0.4 % (0.2-1.2); Eosinophils Absolute Auto 0.1 K/mm3 (0-0.3); Eosinophils Percent Auto 0.5 % (0-4.4); Hematocrit 31.4 % (37.0-47.0); Hemoglobin 10.7 g/dL (12.0-15.0); Immature Granulocyte Absolute 0.05 K/mm3 (0.00-0.031); Immature Granulocyte Percent A 0.3 % (0-0.5); Lymphocytes Absolute Auto 3.19 K/mm3 (0.9-3.2); Lymphocytes Percent Auto 21.8 % (18.3-44.2); Mean Corpuscular HGB Conc 34.1 g/dl (32-36); Mean Corpuscular Hemoglobin 26.8 pg (26-34); Mean Corpuscular Volume 78.5 fl (80-100); Mean Platelet Volume 10.2 fl (7.4-10.4); Neutrophils Absolute Auto 10.3 K/mm3 (1.3-6.7); Platelet Count Result 288 k/mm3 (150-375); Red Cell Distribution Width 13.7 % (11.5-14.5); White Blood Count 14.7 K/mm3 (4.5-10.0)
--- NOTE | 2022-11-08 03:08 | LDADM ---
This patient, Karis Sandoval, was admitted to Labor/Delivery/Recovery 106 on 11/08/22 at 02:39. Plans for labor, pain management and were discussed with patient. Patient/family oriented to hospital policies and general routines including ID bracelet, bed and alarms, visiting hours, pain management, procedures, bathroom and other care routines, personal items, smoking policy, room service/diet and guest tray routines, infant security routines, and visiting hours. Patient/Family are encouraged to report perceived risks to care and to ask questions if they do not understand what they are told or what they should do. See OBIX for further documentation.
--- NOTE | 2022-11-08 03:38 | WPDHPUPDATE1 ---
History and Physical Update Update Date/Time: 11/08/22 03:38 27 yo at 38w0d who presents in labor. Pt reports regular contractions throughout the day. She denies any vaginal bleeding or leakage of fluid. She reports good movement. History and Physical has been reviewed, including an updated exam of the patient. There are NO changes in the patient's condition. Risks, benefits, and alternatives have been discussed and questions answered. Patient agrees to proceed with procedure. A/P: 27 yo at 38w0d in labor admit to L&D routine admission orders Rh+ GBS neg regular contraction on tocometer continuous EFM cervix 6.5/90/-2 pt requesting epidural will plan for AROM for augmentation
--- NOTE | 2022-11-08 03:49 | WPDANESEPP ---
Anes - Eval Pre Procedure Procedure: labor epidural Date/Time: 11/08/22 03:49 Pre Op Diagnosis: Labor Patient Data Age: 27 Gender: F Height: 1.7 m Weight: 117 kg Last Vital Signs Pulse 94 11/08/22 03:48 BP 123/55 L 11/08/22 03:48 Pulse Ox 99 11/08/22 03:48 Allergies Allergy/AdvReac Type Severity Reaction Status Date / Time No Known Allergies Allergy Verified 11/04/22 13:45 Home Medications Medication Instructions Recorded Confirmed Type vitamins-iron fumarate 65 1 tablet PO DAILY 03/30/22 11/04/22 History mg iron-folic acid 1 mg tablet sertraline 50 mg tablet (Zoloft) 50 mg PO DAILY 10/26/22 11/08/22 History Laboratory Tests 11/08/22 03:03 WBC 14.7 H K/mm3 (4.5-10.0) RBC 4.00 L M/mm3 (4.2-5.4) Hgb 10.7 L g/dL (12.0-15.0) Hct 31.4 L % (37.0-47.0) MCV 78.5 L fl (80-100) MCH 26.8 pg (26-34) MCHC 34.1 g/dl (32-36) RDW 13.7 % (11.5-14.5) Plt Count 288 k/mm3 (150-375) MPV 10.2 fl (7.4-10.4) Immature Gran % (Auto) 0.3 % (0-0.5) Neut % (Auto) 70.0 % (45.5-73.1) Lymph % (Auto) 21.8 % (18.3-44.2) Mower % (Auto) 7.0 % (2.6-8.5) Eos % (Auto) 0.5 % (0-4.4) Baso % (Auto) 0.4 % (0.2-1.2) Lymph # (Auto) 3.19 K/mm3 (0.9-3.2) Mower # (Auto) 1.0 H K/mm3 (0.1-0.6) Eos # (Auto) 0.1 K/mm3 (0-0.3) Baso # (Auto) 0.1 K/mm3 (0.0-0.1) Abs Immat Gran (auto) 0.05 H K/mm3 (0.00-0.031) Absolute Neuts (auto) 10.3 H K/mm3 (1.3-6.7) Absolute Nucleated RBC 0.0 K/mm3 (0.0-0.012) Nucleated RBC % 0.0 % (0.0-0.2) RPR Pending Patient hx anesthesia problems: none Family hx anesthesia problems: none Results Review: All pre-operative results and documents have been reviewed as part of the pre-operative evaluation. [facility] Past Medical History Medical History AUDREY positive Irregular periods Morbid obesity with BMI of 40.0-44.9, adult Suppression of menstruation Surgical History Surgical History History of gynecological procedure (03/08/19) dick iud insertion History of gynecological procedure (01/25/20) dick iud removal History of hysteroscopy (01/01/22) Suction D&C / Missed AB Family History Family History Mother Diabetes mellitus Grandparent Diabetes mellitus Other Breast cancer Father Heart disease Social History Social History Smoking status: Never smoker Second hand tobacco smoke exposure: No Alcohol intake: current Alcohol use details: RARE Substance use: never Substance use type: does not use Lack of Transportation: No Lack of Food: Never True Current Housing: I Have Housing Concerned About Future Housing: No Difficulty Paying Gas/Electric Bills: No Difficulty Paying for Meds: No Currently Unemployed: No Education: Bachelor's Degree Difficulty w/ Childcare or Family Care: No Living arrangements: with family Additional living arrangements comments: Occupation/Education: occupation Additional occupation/education comments: engineering Gender identity (if verbalized by the patient): Female Sexual Orientation (if Verbalized by the Patient): Straight or Heterosexual Spiritual care concerns: No Exam Day of Procedure 11/08/22 03:49 Patient weight: morbidly obese Heart: regular rate and rhythm Lungs: clear to auscultation Airway: Mallampati scale Neurological: alert and oriented
[2022-11-08] MEDS: ONDANSETRON INJ 4 MG/2 ML VIAL IV PUSH (03:50)
[2022-11-08] MEDS: PHENYLEPHRINE 1,000 MCG/10 ML SYRINGE 100 MCG IV PUSH (04:05)
--- NOTE | 2022-11-08 04:42 | PM.OBPRVD ---
OB - Delivery Note Procedure Delivery date: 11/08/22 Induction method: None Delivery augmentation: Rupture of Membranes Delivery monitor: External FHT and External Uterine Route of delivery: Specimen: No Quantitative Blood Loss (ml): 150 Anesthesia type: Epidural Disposition: PACU Baby Date of : 11/08/22 Time of : 04:33 Weeks of gestation at delivery: 38 gender: Male presentation: vertex position: Right Occiput Anterior Placenta delivery description: Spontaneous Cord Vessel Description: 3 Vessels score one minute: 8 score five minutes: 8 [facility] Delivery Billing Delivery Delivery: Delivery Charge
[2022-11-08] MEDS: OXYTOCIN 30 UNITS/NS 500 ML 30 UNITS/500 ML BAG 999 UNITS IV CONT (04:45)
[2022-11-08] MEDS: OXYTOCIN 30 UNITS/NS 500 ML 30 UNITS/500 ML BAG 125 UNITS IV CONT (05:27)
[2022-11-08] MEDS: BENZOCAINE 20% AER SPR (*SP) 56 GM CAN 1 SPRAY TOPICAL (08:01)
[2022-11-08] MEDS: WITCH HAZEL 40 PADS 1 PAD TOPICAL (08:01)
[2022-11-08] MEDS: MULTIVIT/MIN/PREN/FOL AC/IRON TABLET 1 TAB PO (08:07)
[2022-11-08] MEDS: IBUPROFEN 600 MG TABLET PO ×2 (08:07→16:49)
--- NOTE | 2022-11-08 08:53 | OBPPTRN ---
Addendum entered by Radha Valdez RN 11/08/22 09:41: Pt was admitted at 0833, not 0853. Original Note: Patient transferred to post room # 288 via wheelchair. Support person present. Oriented to unit, room, information board, rooming in, admission packet and security measures. Patient verbalizes understanding.
[2022-11-08 10:17] LABS: Rapid Plasma Reagin Non-Reactive (NonReactive)
[2022-11-08] MEDS: ACETAMINOPHEN 325 MG TABLET 650 MG PO (19:34)
[2022-11-08] MEDS: SERTRALINE HCL 50 MG TABLET PO (21:02)
[2022-11-09 00:25] VITALS: BP 120/76; PULSE 89; RESP 16; TEMP 36.8
[2022-11-09 06:01] LABS: Hematocrit 31.6 % (37.0-47.0); Hemoglobin 10.2 g/dL (12.0-15.0)
[2022-11-09] MEDS: MULTIVIT/MIN/PREN/FOL AC/IRON TABLET 1 TAB PO (08:15)
[2022-11-09] MEDS: DOCUSATE SODIUM 100 MG CAPSULE PO (08:15)
[2022-11-09] MEDS: IBUPROFEN 600 MG TABLET PO (08:17)
[2022-11-09 08:20] VITALS: BP 137/78; PULSE 69; RESP 18; TEMP 36.5; O2SAT 96
--- NOTE | 2022-11-09 11:35 | PM.OBDSVD ---
DS: Admitting Diagnosis Discharge Date 11/09/22 Admitting Diagnosis intrauterine at term OB - DS: Summary OB Procedures : None OB Procedures Intrapartum: Spontaneous Vag Delivery OB Procedures: : None Status at Discharge Functional status at discharge: independent ambulation Overall status at discharge: patient is back to baseline Time Spent with Patient Time attestation: Total time spent providing and/or coordinating discharge services: Time spent: Less than 30 minutes Exam Const: General: comfortable and no acute distress Resp: Effort & Inspection: normal respiratory effort Auscultation: clear to auscultation bilaterally Cardio: Rate: regular rate GI: GI Palp: Yes Soft to palpation Auscultation: normal bowel sounds Other: Fundus firm below umbilicus Psych: Appearance: grossly normal Mental Status: mental status grossly normal Affect: normal affect DS: Data Data Completed and Pending Labs on day of discharge: Labs from last 24 hours 11/09/22 05:12 Hgb 10.2 L Hct 31.6 L Discharge Plan Discharge Discharging Clinician: Zachary Zelaya Patient Disposition: Home, Self-Care Activity: as tolerated and pelvic rest Diet: regular Discharge Instructions: Education: Mom and Baby Guide Given to: Mother Follow-Up: Call your delivering provider's office for an appointment to be seen in: 3 weeks [facility]. Appointment Date/Time: November 11, 2022 at 10:00 am What to expect at your follow-up visit: Blood Pressure Check Physical Assessment Call [phone] if you are unable to keep your appointment time. BREAST CARE: * Wear a snug supportive bra. * For engorgement discomfort: Breast Feeding: * Apply warm moist washcloths * Express milk as needed to relieve engorgement * Wear loose clothing * For sore nipples: * Identify correct latch-on * Apply warm moist washcloths before and after nursing * Air dry nipples after nursing * May apply Lansinoh cream to nipples EPISIOTOMY/PERINEAL CARE: * Until bleeding stops, use your maria e bottle after urinating * Change your pad frequently throughout the day * You may take sitz baths several times a day (fill your bathtub with warm water and soak for 20 minutes.) Do NOT bathe in the water * No tub baths until seen by your physician - You may shower ACTIVITY: * Rest as much as possible. * Do not exercise or lift anything heavier than your baby (such as laundry or other children.) * Avoid stairs or driving as much as possible. * Do not put anything into the vagina. No douching, tampons, or sexual activity until seen by physician. NOTIFY PHYSICIAN IF YOU HAVE ANY QUESTIONS OR IF ANY OF THE FOLLOWING SYMPTOMS OCCUR: * If your vaginal area becomes red, swollen, or more painful than what you have experienced in the hospital. * If your vaginal bleeding becomes foul smelling. * If your vaginal bleeding becomes more heavy than a period or if your bleeding changes from pink to bright red. However, you may pass an occasional walnut-sized clot once or twice for the first week . * If you experience a sharp, shooting pain in your calves. * If you discover a hard, reddened area on your breast or if you experience flu-like symptoms. DIET: * Eat regular, well-balanced meals. * Drink plenty of fluids daily. Patient Instructions: Antibiotic Form Stand Alone Forms: General Discharge Information Follow-up/Referrals: Marciano Mitchell MD [Physician] - Discharge Medications: New acetaminophen 500 mg tablet 500 mg PO Q6H PRN (Reason: pain) Qty: 30 0RF ibuprofen 600 mg tablet 600 mg PO Q6H PRN (Reason: pain) Qty: 30 0RF Continued vit-iron fum-folic ac 65 mg iron- 1 mg tablet 1 tablet PO DAILY sertraline [Zolo
[2022-11-09] MEDS: ACETAMINOPHEN 325 MG TABLET 650 MG PO (12:00)
[2022-11-11 10:18] VITALS: BP 129/75; PULSE 88; RESP 18; TEMP 37; O2SAT 100
== END 2022-11-09 13:40 | disposition home or self-care (01) | DRG 807 ==
LOC: ANHOB2 11-09 11:40 → ANHLDR 11-11 08:40 → ANHOB2 11-11 08:40
PROVIDERS: Admitting Provider Obstetrics & Gynecology; PCP Internal Medicine; Visit Provider Student in an Organized Health Care Education/Training Program
DX: O62.3 Precipitate labor (principal); Z37.0 Single live birth; O99.214 Obesity complicating childbirth; E66.01 Morbid (severe) obesity due to excess calories; Z3A.38 38 weeks gestation of pregnancy
CPT/HCPCS: 36415; 85014; 85018; 85025; 86592; 86850; 86900; 86901; A9270; J2371; J2405; J2590; J2795; J7120

== ENCOUNTER 2023-03-31 10:54 | Outpatient (CLI) | payer BC, SELFPAY ==
--- NOTE | ~2023-03-31 | XR_ITS ---
EXAMINATION: XR lumbar spine min 4V DATE: 03/31/2023 11:26 INDICATION: Low back pain TECHNIQUE: Anteroposterior, lateral, and bilateral oblique views of the lumbar spine, and cone-down l ateral view of the lumbosacral junction were obtained. COMPARISON: None. FINDINGS: There are 2 mm of retrolisthesis of L4 on L5 and 2 mm of anterolisthesis of L5 on S1. The v ertebral body heights are normal. There is mild loss of intervertebral disc space height at L5-S1. Sm all degenerative osteophytes project from the anterior endplates of multiple vertebral bodies. There are bilateral pars defects at L5. IMPRESSION: 1. Mild lumbar spondylosis. 2. Bilateral L5 pars defects. Reviewed, dictated and finalized at location F. TIONAL PSYCHOLOGIST
== END 2023-03-31 10:55 | disposition home or self-care (01) ==
LOC: CHSIMG 10:56
PROVIDERS: PCP Internal Medicine; Visit Provider Internal Medicine
DX: M54.50 Low back pain, unspecified (principal); M43.06 Spondylolysis, lumbar region; M53.86 Other specified dorsopathies, lumbar region
CPT/HCPCS: 72110

== ENCOUNTER 2023-04-08 13:43 | Outpatient (RCR) | payer BC, SELFPAY ==
--- NOTE | 2023-04-08 15:27 | OPREHPOC ---
Outpatient Therapy Plan of Care This is a Multidisciplinary Plan of Care that may contain components documented by all disciplines (PT, OT, and ST.) PT Problem 1 PT Problem #1 Knowledge Deficit PT Goal 1 Goal The patient will demonstrate independence in a home exercise program. Target Visit 8 PT Problem 2 PT Problem #2 Pain PT Goal 1 Goal The patient will report no greater than 2/10 low back pain with daily activities including lifting her child. Target Visit 8 PT Problem 3 PT Problem #3 Impaired Functional Mobil PT Goal 1 Goal The patient will demonstrate the ability to lift 30# from floor to waist with proper body mechanics in order to take care of her child without comprimising her spine function. Target Visit 8 PT Problem 4 PT Problem #4 Impaired Strength PT Goal 1 Goal The patient will demonstrate 3+/5 strength in the upper and lower abdominals and lumbar extensors to improve lifting ability. Target Visit 8
--- NOTE | 2023-04-08 15:28 | PTOPEVAL1 ---
Assessment and note entered by Michelle Walton, PT Evaluation Information Assessment Status Evaluation Diagnosis LBP Onset 04/05/23 Subjective Information Karis Sandoval reports she started having central lower back pain that started in November 2022 after having her third child. She told the doctor at her well appointment she was having low back pain and a x-ray was performed. She was told a vertebrae shifted while she was and she should try physical therapy. She notes the pain is worse when she picks her youngest child up who weighs 17 lbs , carrying the baby in his carrier, and when she lays in certain positions. Reported Pain Level Pain Score 1: Self Report Assessment PT Clinical Summary Karis Sandoval presents with ___. She has difficulty with ___. She objectively demonstrates ___, and decreased functional abilities. She will benefit from skilled PT to address these limitations. Plan of Care Interventions Electrical Stimulation,Hot Pack/Cold Pack,Manual Therapy,Neuro Re-education,Patient/Caregiver Educati,Therapeutic Activities,Therapeutic Exercise PT Services Indicated Yes Treatment Frequency and __ times a week for __ visits Duration These treatments will address the objective and functional deficits as defined above. The patient will be advanced safely and appropriately in order for the patient to progress towards his/her prior level of function. Additional exercises will be introduced and as well as a comprehensive home exercise program upon discharge, if needed, ?to ensure carryover of functional gains achieved in the clinic. This treatment plan has been reviewed and agreement upon by the patient.
--- NOTE | 2023-04-08 15:32 | PTOPEVAL1 ---
Assessment and note entered by Michelle Walton, PT Evaluation Information Assessment Status Evaluation Diagnosis LBP Onset 04/05/23 Subjective Information Karis Sandoval reports she started having central lower back pain that started in November 2022 after having her third child. She told the doctor at her well appointment she was having low back pain and a x-ray was performed. She was told a vertebrae shifted while she was and she should try physical therapy. She notes the pain is worse when she picks her youngest child up who weighs 17 lbs , carrying the baby in his carrier, and when she lays in certain positions. Reported Pain Level Pain Score 1: Self Report Assessment PT Clinical Summary Karis Sandoval presents with central low back pain following the of her 3rd child in November 2022 . X-rays have shown a 2 mm L4-5 retrolithesis and 2 mm L5-S1 anteriolithesis. She has difficulty with lifting her 17# baby from his bassinet, carrying her child in a baby carrier, and lying in supine. She objectively demonstrates decreased core strength, tenderness at the L4 spinous process and bilateral sacroiliac joints, and decreased functional abilities of lifting and carrying. She will benefit from skilled PT to address these limitations and for education in proper body mechanics for daily tasks including taking car of her children. Plan of Care Interventions Electrical Stimulation,Hot Pack/Cold Pack,Manual Therapy,Neuro Re-education,Patient/Caregiver Educati,Therapeutic Activities,Therapeutic Exercise PT Services Indicated Yes Treatment Frequency and 2 times a week for 8 visits Duration These treatments will address the objective and functional deficits as defined above. The patient will be advanced safely and appropriately in order for the patient to progress towards his/her prior level of function. Additional exercises will be introduced and as well as a comprehensive home exercise program upon discharge, if needed, ?to ensure carryover of functional gains achieved in the clinic. This treatment plan has been reviewed and agreement upon by the patient.
--- NOTE | 2023-08-12 11:04 | PCPTNOTE ---
08/12/23: Pt was only seen for 2 PT sessions and was last seen on 04/09/23. She is discharged. -Michelle Walton, PT
== END 2023-04-09 20:00 | disposition home or self-care (01) ==
LOC: CHSPT 13:43
PROVIDERS: PCP Internal Medicine; Visit Provider Internal Medicine
DX: M54.50 Low back pain, unspecified (principal)
CPT/HCPCS: 97110; 97161

== ENCOUNTER 2024-01-06 10:06 | Outpatient (CLI) | payer BC, SELFPAY ==
--- NOTE | ~2024-01-06 | XR_ITS ---
Left elbow Technique: AP, oblique, and lateral views were obtained. Clinical History: Pain Findings: No acute fracture or dislocation is seen. Osseous alignment is anatomic. Joint spaces are p reserved. There is no displacement of the fat pads, and soft tissues are unremarkable. Impression: Unremarkable radiographs. Reviewed, dictated and finalized at location . Impression: Unremarkable radiographs.
[2024-01-06 10:42] LABS: Basophils Absolute Auto 0.06 K/mm3 (0.00-0.10); Basophils Percent Auto 0.6 % (0.0-1.0); Eosinophils Absolute Auto 0.09 K/mm3 (0.02-0.50); Eosinophils Percent Auto 0.9 % (1.0-6.0); Hematocrit 37.8 % (35.0-49.0); Hemoglobin 12.8 g/dL (12.0-15.0); Immature Granulocyte Absolute 0.02 K/mm3 (0.00-0.00); Immature Granulocyte Percent A 0.2 % (0.0-0.0); Lymphocytes Absolute Auto 2.68 K/mm3 (1.10-4.50); Lymphocytes Percent Auto 28.1 % (18.0-42.0); Mean Corpuscular HGB Conc 33.9 g/dL (32-36); Mean Corpuscular Hemoglobin 27.9 pg (27.0-31.0); Mean Corpuscular Volume 82.4 fL (78.0-102.0); Mean Platelet Volume 10.9 fl (9.2-11.8); Monocytes Absolute Auto 0.65 K/mm3 (0.10-0.90); Monocytes Percent Auto 6.8 % (2.0-11.0); Neutrophils Absolute Auto 6.04 K/mm3 (1.70-7.20); Neutrophils Percent Auto 63.4 % (50.0-70.0); Platelet Count Result 235 K/mm3 (150-420); Red Blood Count 4.59 M/mm3 (4.20-5.40); Red Cell Distribution Width 12.4 % (11.6-14.4); White Blood Count 9.5 K/mm3 (4.8-10.8)
[2024-01-06 11:57] LABS: Alanine Aminotransferase 92 U/L (14-59); Albumin Level 3.9 g/dL (3.4-5.0); Alkaline Phosphatase 75 U/L (46-116); Anion Gap 13 mmol/L (4-12); Aspartate Amino Transferase 47 U/L (15-37); Bilirubin,Total 0.3 mg/dL (0.00-1.00); Blood Urea Nitrogen 11 mg/dL (7-18); CRP 0.6 mg/dL (0.0-0.9); Carbon Dioxide 23 mmol/L (21-32); Chloride 101 mmol/L (98-108); Estimated Glomerular Filt Rate > 60; Glucose 88 mg/dL (70-99); Osmolality Calculated 282 mOsm/kg (285-295); Phosphorus 3.4 mg/dL (2.6-4.7); Potassium 4.2 mmol/L (3.5-5.1); Sodium 137 mmol/L (136-145); Total Protein 7.4 g/dL (6.4-8.2)
[2024-01-07 17:53] LABS: Parathyroid Intact 33 pg/mL (16-77)
[2024-01-08 11:18] LABS: Vitamin D 25 Hydroxy 33 ng/mL (30-100)
[2024-01-11 14:19] LABS: Vitamin D 1,25 (OH)2 Total 62 pg/mL (18-72); Vitamin D2 1,25 (OH)2 <8 pg/mL; Vitamin D3 1,25 (OH)2 62 pg/mL
[2024-01-12 06:08] LABS: Hepatitis A Antibody IgM NON-REACTIVE (NON-REACTIVE); Hepatitis B Core Antibody NON-REACTIVE (NON-REACTIVE); Hepatitis B Surface Antigen NON-REACTIVE (NON-REACTIVE); Hepatitis C Virus Antibody NON-REACTIVE (NON-REACTIVE)
[2024-01-12 12:14] LABS: ANA Titer 1:40 titer; Anti Nuclear Antibody Pattern Nuclear, Speckled; Anti Nuclear Antibody Titer 1:40 titer
[2024-01-14 15:19] LABS: Cyclic Citrullinated Peptide <16 UNITS
== END 2024-01-06 10:07 | disposition home or self-care (01) ==
LOC: CHSLAB 10:14
PROVIDERS: PCP Internal Medicine; Visit Provider Internal Medicine
DX: M25.50 Pain in unspecified joint (principal); R94.5 Abnormal results of liver function studies
CPT/HCPCS: 36415; 73080; 80053; 80074; 82306; 82652; 83735; 83970; 84100; 85025; 86038; 86039; 86140; 86200

== ENCOUNTER 2024-01-20 07:32 | Outpatient (CLI) | payer BC, SELFPAY ==
--- NOTE | ~2024-01-20 | US_ITS ---
Limited Abdominal Sonogram: Real-time sonographic imaging of the right upper quadrant was performed. Clinical History: Abnormal LFTs Findings: The liver appears echogenic, with no evidence of mass lesion or bile duct dilatation. Main portal vein demonstrates normal direction of flow. The gallbladder is well distended, and appears no rmal with no evidence of gallstone or wall thickening. The common bile duct measures 3 mm. The visua lized pancreas, aorta, and IVC are unremarkable. Impression: Diffuse fatty infiltration of the liver. Reviewed, dictated and finalized at location M. Impression: Diffuse fatty infiltration of the liver.
== END 2024-01-20 07:33 | disposition home or self-care (01) ==
PROVIDERS: PCP Internal Medicine; Visit Provider Internal Medicine
DX: R94.5 Abnormal results of liver function studies (principal); K76.0 Fatty (change of) liver, not elsewhere classified
CPT/HCPCS: 76705

== ENCOUNTER 2024-08-04 07:03 | Outpatient (CLI) | payer BC, SELFPAY ==
--- NOTE | ~2024-08-04 | US_ITS ---
EXAMINATION: US OB <= 14 weeks fetus DATE: 08/04/2024 07:51 INDICATION: Gestational dating TECHNIQUE: Real-time transabdominal and transvaginal obstetric ultrasound. FINDINGS: No prior studies for comparison. The uterus measures 10.4 x 7.4 x 6.8 cm. There is an intrauterine gestational sac, with pole id entified. The crown rump length measures 3.5 cm, which correlates with a estimated gestational age o f 8 weeks 5 days. heart tones are identified measuring 165 bpm. Right ovary measures 3.8 x 2. 6 x 3.5 cm contains a 2.2 cm cyst. Left ovary is unremarkable measuring 2.8 x 2.2 x 2 cm. IMPRESSION: 1. SL IUP with an EGA of 8 weeks, 5 days (EDC by current ultrasound of 03/11/2025). Reviewed, dictated and finalized at location A. IMPRESSION: 1. SL IUP with an EGA of 8 weeks, 5 days (EDC by current ultrasound of 03/11/20).
[2024-08-04 08:36] LABS: Basophils Absolute Auto 0.05 K/mm3 (0.00-0.10); Basophils Percent Auto 0.5 % (0.0-1.0); Eosinophils Absolute Auto 0.06 K/mm3 (0.02-0.50); Eosinophils Percent Auto 0.6 % (1.0-6.0); Hematocrit 34.2 % (35.0-49.0); Hemoglobin 11.7 g/dL (12.0-15.0); Immature Granulocyte Absolute 0.03 K/mm3 (0.00-0.00); Immature Granulocyte Percent A 0.3 % (0.0-0.0); Lymphocytes Absolute Auto 1.74 K/mm3 (1.10-4.50); Lymphocytes Percent Auto 17.6 % (18.0-42.0); Mean Corpuscular HGB Conc 34.2 g/dL (32-36); Mean Corpuscular Volume 81.8 fL (78.0-102.0); Mean Platelet Volume 9.4 fl (9.2-11.8); Monocytes Absolute Auto 0.43 K/mm3 (0.10-0.90); Monocytes Percent Auto 4.4 % (2.0-11.0); Neutrophils Absolute Auto 7.57 K/mm3 (1.70-7.20); Neutrophils Percent Auto 76.6 % (50.0-70.0); Platelet Count Result 261 K/mm3 (150-420); Red Blood Count 4.18 M/mm3 (4.20-5.40); Red Cell Distribution Width 12.4 % (11.6-14.4); White Blood Count 9.9 K/mm3 (4.8-10.8)
[2024-08-04 11:13] LABS: HIV 1 P24 AG Negative (Negative); HIV 1/2 AB Negative (Negative)
[2024-08-04 17:55] LABS: Glucose 1 Hour PP 50gm Dose 145 mg/dL (70-130)
[2024-08-06 04:43] LABS: Hepatitis B Surface Antigen NON-REACTIVE (NON-REACTIVE)
[2024-08-07 12:28] LABS: RPR Screen NON-REACTIVE (NON-REACTIVE)
[2024-08-07 17:19] LABS: CMV IgG Antibody <0.60 U/mL; Rubella IgG Antibody 2.04 Index; Varicella IgG Antibody 2.29 S/CO
== END 2024-08-04 07:04 | disposition home or self-care (01) ==
LOC: CHSIMG 07:06
PROVIDERS: PCP Nurse Practitioner Family; Visit Provider Obstetrics & Gynecology
DX: N91.2 Amenorrhea, unspecified (principal); Z3A.08 8 weeks gestation of pregnancy
CPT/HCPCS: 36415; 76801; 82947; 84702; 85025; 86592; 86644; 86747; 86762; 86787; 86850; 86900; 86901; 87086; 87340; 87806

== ENCOUNTER 2024-08-11 06:55 | Outpatient (CLI) | payer BC, SELFPAY ==
[2024-08-11 07:31] LABS: Hemoglobin A1C 5.4 % (<5.7)
[2024-08-11 07:38] LABS: Glucose Fasting Gestational 81 mg/dL (>/=95)
[2024-08-11 08:35] LABS: Glucose 1 Hour Gest 133 mg/dL (70-130)
[2024-08-11 09:37] LABS: Glucose 2 Hour Gest 136 mg/dL (<155)
[2024-08-11 11:02] LABS: Glucose 3 Hour Gest 76 mg/dL (>/=140)
== END 2024-08-11 06:56 | disposition home or self-care (01) ==
LOC: CHSLAB 06:56
PROVIDERS: PCP Nurse Practitioner Family; Visit Provider Obstetrics & Gynecology
DX: O99.810 Abnormal glucose complicating pregnancy (principal)
CPT/HCPCS: 36415; 82951; 82952; 83036

== ENCOUNTER 2024-10-20 08:31 | Outpatient (CLI) | payer BC, SELFPAY ==
--- NOTE | ~2024-10-20 | US_ITS ---
EXAMINATION: US OB /maternal detail DATE: 10/21/2024 21:47 CDT INDICATION: Anatomy scan TECHNIQUE: Real-time transabdominal obstetric ultrasound. FINDINGS: 5 para 3 There is a single intrauterine gestation in variable presentation. The placenta is anterior and fundal. The tip of the placenta measures 5.8 cm from the internal cervical os. The cervix measures 3.3 cm in length. cardiac activity and movement is noted with a heart rate of 150 beats per minute. Anatomic parameters are as follows The bladder is visualized and is unremarkable. A three-vessel cord is present. Cord insertion is not clearly demonstrated to be on the midline on the submitted images for which f ollow-up is needed. Bilateral kidneys are present without hydronephrosis. The diaphragm is continuous. The cervical, thoracic and lumbar spines are covered in their entirety. choroid plexi are visualized, and unremarkable. Limited view of the lateral ventricles, insufficient for measurement. The falx is visualized. The cerebellum is visualized measuring 19.8 mm, and is sonographically unremarkable. The cisterna magna measures 3.5 mm in anterior to posterior dimension (normal measurement is 2 to 10 mm). The nuchal fold measures 4.9 mm (greater than 6 mm is considered abnormal). Cine of the four-chamber heart is visualized and is anatomic. Both the right and left ventricular outflow tracts are identified (on cine view) and are unremarkable . Limited views of the arms, hands, legs and feet were performed and appear grossly unremarkable. Limited evaluation of the upper lip and nose to confirm their continuity is appreciated on the subm itted images for which follow-up examination is needed. The following biometric data were obtained: Biparietal diameter (BPD): 4.5 cm; head circumference (HC): 17 cm; abdominal circumference (AC): 16 cm; femur length (FL): 3.1 cm. These measurements are concordant. Estimated weight is 338.5 g +/- 50.7 g, which correlates with the 74th percentile when is used as estimated date of delivery. As single measurements, these parameters are each equal to the following estimated gestational ages: BPD: 19 weeks 4 days. HC: 19 weeks 4 days. AC: 20 weeks 5 days. FL: 19 weeks 5 days. estimated gestational age based solely on measurements from this exam is 19 weeks 6 days +/- 1 week 3 days. IMPRESSION: Single intrauterine gestation with an approximate gestational age of 19 weeks and 6 days. Estimated d ue date by ultrasound is 03/10/2025. Limited evaluation of the upper lip and nose, lateral ventricles, and cord insertion on the current e xamination for which short-term follow-up is needed. Reviewed, dictated and finalized at location A. IMPRESSION: Single intrauterine gestation with an approximate gestational age of 19 weeks a nd 6 days. Estimated due date by ultrasound is 03/10/2025. Limited evaluation of the upper lip and nose, lateral ventricles, and cord inse rtion on the current examination for which short-term follow-up is needed.
== END 2024-10-20 08:32 | disposition home or self-care (01) ==
LOC: CHSIMG 08:31
PROVIDERS: PCP Nurse Practitioner Family; Visit Provider Obstetrics & Gynecology
DX: Z34.90 Encounter for supervision of normal pregnancy, unspecified, unspecified trimester (principal); Z3A.19 19 weeks gestation of pregnancy
CPT/HCPCS: 76805

== ENCOUNTER 2024-11-29 16:40 | Observation (INO) | payer BC, SELFPAY ==
--- OUTSIDE RECORDS SUMMARY | 2024-11-29 16:48 | XMS_ITS | Clinical Summary ---
Author Organization [facility] Address [address] [place] [address] Care Team Providers Care Supervisor Metal Placing Name Role Phone Unavailable Primary Care Provider Unavailabl e Source Comments [facility],non-owned Affiliates and Associated Physician Practices is amultiple site organization consisting of ambulatory clinics and hospital sitesin [place], [place], [place] and [place]. This disclosure is being madepursuant to the Care Everywhere program and may not contain all information available regarding this patient. Last updated 18.[facility] Encounters Date Type Department Care Team Description 11/03/2024 8:54 AM CDT - 11/03/2024 11:59 PM CDT Hospital Encounter [facility] Women's Health Maternal & Care [address] [place], [place] [id number] Meme Abel MD Discharge Disposition: Home or Self Care from Last 3 Months Social History Tobacco Use Types Packs/Day Years Used Date Smoking Tobacco: Never Assessed Estimated Date of Delivery Comme nts Yes 03/11/2025 Based on Ultraso und Sex and Gender Information Value Date Recorded Sex Assigned at Not on file Legal Sex Female 10:52 AM CDT Gender Identity Not on file Sexual Orientation Not on file Plan of Treatment Health Maintenance Due Date Last Done Comments HIV SCREENING 2011 HEPATITIS C SCREENING 03/04/2014 DTAP/TDAP/TD VACCINES (1 - Tdap) 2015 HEPATITIS B VACCINE (1 of 3 - 19+ 3-dose series) 2015 PAP SMEAR 2017 HPV VACCINE (1 - 3-dose SCDM series) 2023 COVID-19 VACCINE (3 - 2023-2 5 season) 2024 03/19/2021, 02/26/2021 DEPRESSION SCREENING 05/10/2024 OB-ONE HOUR GLUCOSE 12/03/2024 OB-TDAP CURRENT 12/10/20242022, 11/08/2020, 10/09/2010 OB-RHOGAM INJECTION 12/17/2024 INFLUENZA VACCINE (#1) 2025 05/09/2018 Respiratory Syncytial Virus (RSV) Vaccine Pt: or over 60 yrs (1 - Risk 1-dose series) 01/14/2025 ZOSTER VACCINE (1 of 2) 2046 HIB VACCINE Aged Out No longer eligi ble based on patient's age to complete this topic MENINGOCOCCAL (Group B) VACCINE SHARED DECISION-MAKING Aged Out No longer eligible based on patient's age to complete this topic MENINGOCOCCAL GROUPS A/C/Y/W VACCINE Aged Out No longer eligible b ased on patient's age to complete this topic PNEUMOCOCCAL VACCINE Aged Out No long er eligible based on patient's age to complete this topic Procedures Procedure Name Priority Date/Time Associated Diagnosis Comments SONOGRAM - COMPLETE Routine 11/03/2024 8 :46 AM CDT Encounter for anatomic survey (HCC) Obesity affecting in second trimester, unspecified obesity type (HCC) from Last 3 Months Results * Sonogram - Complete (11/03/2024 8:46 AM CDT) Linked Results Indication ======== Incomplete anatomy scan on outside ultrasound Obesity, Class III History ====== OB History 5. Para 3 Maternal Assessment Physical Exam Height 170 cm, 5 ft 7 in. Weight 120 kg, 265 lb. Initial weight 118 kg, 260 lb. BMI 41.51 kg/m . Initial BMI 40.72 kg/m . Weight gain 2 kg, 5 lb Method ====== Transabdominal ultrasound. View: LImited by position and maternal body habitus ========= Serrano . Number of fetuses: 1 Dating ====== Date Details Gest. age SHANIQUA LMP 06/01/2024 22 w + 1 d 2025 U/S 11/03/2024 based upon AC, BPD, Femur, HC 22 w + 3 d 03/06/2025 Assigned dating based on the LMP, selected on 11/03/2024 22 w + 1 d 2025 General Evaluation Cardiac activity present. FHR 148 bpm. Presentation: variable Placenta: Placental site: anterior. No previa seen Umbilical cord: Cord vessels: 3 vessel cord. Insertion site: normal insertion Amniotic fluid: Amount of AF: normal. MVP 5.3 cm Biometry BPD 51.4 mm 21w 4d 26% Hadlock HC 201.0 mm 22w 2d 42% Hadlock Cerebellum tr 24.4 mm 82% [place] Nuchal fold 4.4 mm AC 183.1 mm 23w 1d 74% Hadlock Femur 39.0 mm 22w 4d 53% Hadlock Humerus 35.3 mm 22w 1d 48% Manpreet HC / AC 1.10 -/- Hadlock Weight Calculation: EFW 531 g 73% Hadlock EFW (lb,oz) 1 lb 3 oz EFW by Hadlock ([id number]) Head / Face / Neck Biometry: CM 3.7 mm 5% Nicolaides appropriate Growth Overview Exam date GA BPD (mm) HC (mm) AC (mm) FL (mm) HL (mm) EFW (g) 11/03/2024 22w 1d 51.4 26% 201 42% 183.1 74% 39 53% 35.3 48% 531 73% Anatomy The following structures appear normal: Head / Neck Cranium. Lateral ventricles. Choroid plexus. Midline falx. Cavum septi pellucidi. Cerebellum. Cisterna magna. Thalami. Nuchal fold. Face Lips. Profile. Nose. Nasal bone. Orbits. Heart / Thorax 4-chamber view. RVOT view. LVOT view. 3-vessel view. 3-xhfqxq-uqaqoel view. Situs. Aortic arch view. Bicaval view. Ductal arch view. Great vessels. Right lung. Left lung. Diaphragm. Abdomen Cord insertion. Stomach. Kidneys. Bladder. Bowel. Genitals. Spine Cervical spine. Thoracic spine. Lumbar spine. Sacral spine. Extremities / Skeleton Arms. Hands. Legs. Feet. sex: female. Maternal Structures Cervix declined transvaginal ultrasound Right Ovary Normal Left Ovary Not visualized Appearance: Adnexa appears normal Impression ========= Single live intrauterine at 22w 1d. The size is appropriate. The amniotic fluid volume is normal. The patient declined transvaginal ultrasound. No major malformations were seen within the limitations of ultrasound. Comment ======== ultrasound alone cannot detect all structural, genetic, or functional , placental, or maternal abnormalities Follow-up ======== Follow up ultrasound in 4-6 weeks for growth assessment due to class III obesity. Coding ====== Procedures 12847: US Preg Uterus Detailed 22657: US Preg Uterus Transvaginal Leo PACS Anatomical Region Laterality Modality Other 11/03/2024 8:46 AM CDT Marciano Mitchell MD [facility] ORDERABLES Edited Result - Final from Last 3 Months Insurance [facility] FORMERLY [facility]
[2024-11-29 17:14] VITALS: BP 113/65; PULSE 93
[2024-11-29 17:15] VITALS: BP 116/51; PULSE 94
[2024-11-29 17:30] VITALS: BP 112/75; PULSE 98
[2024-11-29 17:45] VITALS: BP 113/60; PULSE 91
[2024-11-29 18:00] VITALS: BP 110/62; PULSE 92
--- NOTE | 2024-11-30 12:32 | PM.OBTRLD ---
OB - Triage/Final Diagnosis Visit Information Reason for evaluation: other (vaginal bleeding) Comments/Additional reasons for admission: I have assessed the risk for this patient, Karis Dc Sunil Sandoval, and determined that she would benefit from observation care. Evaluation Vital signs: Vital Signs - 24 hr 11/29/24 17:14 11/29/24 17:15 11/29/24 17:30 Pulse Rate 93 94 98 Blood Pressure 113/65 116/51 L 112/75 11/29/24 17:45 11/29/24 18:00 Pulse Rate 91 92 Blood Pressure 113/60 110/62
== END 2024-11-29 18:05 | disposition home or self-care (01) ==
PROVIDERS: Admitting Provider Obstetrics & Gynecology; PCP Nurse Practitioner Family; Visit Provider Obstetrics & Gynecology
DX: O46.90 Antepartum hemorrhage, unspecified, unspecified trimester (principal); Z3A.00 Weeks of gestation of pregnancy not specified
CPT/HCPCS: G0378; G0379

== ENCOUNTER 2024-12-19 06:59 | Outpatient (CLI) | payer BC, SELFPAY ==
--- OUTSIDE RECORDS SUMMARY | 2024-12-19 07:02 | XMS_ITS | Clinical Summary ---
Author Organization [facility] Address [address] [address] Care Team Providers Care Senior Investment Analyst Name Role Phone Unavailable Primary Care Provider Unavailabl e Source Comments [facility],non-owned Affiliates and Associated Physician Practices is amultiple site organization consisting of ambulatory clinics and hospital sitesin [place], [place], [place] and [place]. This disclosure is being madepursuant to the Care Everywhere program and may not contain all information available regarding this patient. Last updated 18.[facility] Encounters Date Type Department Care Team Description 11/03/2024 8:54 AM CDT - 11/03/2024 11:59 PM CDT Hospital Encounter [facility] Women's Health Maternal & Care [address] [place], [place] [id number] Meme Abel MD Discharge Disposition: Home or [...] 1 lb 3 oz EFW by Hadlock ([id number]) Head / Face / Neck Biometry: CM [...] view. RVOT view. LVOT view. 3-vessel view. 8-izuaqt-ytedesr view. Situs. Aortic arch view. Bicaval view. [...] to class III obesity. Coding ====== Procedures 14947: US Preg Uterus Detailed 10167: US Preg Uterus Transvaginal [employer] PACS Anatomical Region Laterality Modality Other 11/03/2024 8:46 AM CDT Marciano Mitchell MD [facility] ORDERABLES Edited Result - Final from Last 3 Months Insurance [facility] Address: [facility] [id number] [place] [address]
[2024-12-19 08:23] LABS: Hematocrit 32.0 % (35.0-49.0); Hemoglobin 10.7 g/dL (12.0-15.0); Immature Granulocyte Percent A 0.4 % (0.0-0.0); Lymphocytes Absolute Auto 1.95 K/mm3 (1.10-4.50); Mean Corpuscular HGB Conc 33.4 g/dL (32-36); Mean Corpuscular Hemoglobin 27.9 pg (27.0-31.0); Mean Corpuscular Volume 83.6 fL (78.0-102.0); Nucleated Red Blood Cells Absolute Auto 0.00 K/mm3 (0.00-0.00); Nucleated Red Blood Cells Perc 0.0 % (0-0.0); Platelet Count Result 266 K/mm3 (150-420); Red Blood Count 3.83 M/mm3 (4.20-5.40); White Blood Count 11.3 K/mm3 (4.8-10.8)
[2024-12-19 08:42] LABS: Glucose 1 Hour PP 50gm Dose 131 mg/dL
[2024-12-19 09:10] LABS: HIV 1 P24 AG Negative (Negative); HIV 1/2 AB Negative (Negative)
[2024-12-21 04:07] LABS: RPR Non Reactive (Non Reactive)
== END 2024-12-19 07:00 | disposition home or self-care (01) ==
LOC: CHSLAB 07:01
PROVIDERS: PCP Nurse Practitioner Family; Visit Provider Obstetrics & Gynecology
DX: Z34.90 Encounter for supervision of normal pregnancy, unspecified, unspecified trimester (principal)
CPT/HCPCS: 36415; 82947; 85025; 86592; 87806

== ENCOUNTER 2025-01-25 11:29 | Outpatient (RCR) | payer BC, SELFPAY ==
[2025-01-25 12:31] VITALS: BP 132/72; PULSE 104
== END 2025-04-25 23:59 | disposition home or self-care (01) ==
LOC: ANHOBOP 11:29
PROVIDERS: PCP Nurse Practitioner Family; Visit Provider Obstetrics & Gynecology
DX: O36.8130 Decreased fetal movements, third trimester, not applicable or unspecified (principal); Z3A.33 33 weeks gestation of pregnancy
CPT/HCPCS: 59025

== ENCOUNTER 2025-03-01 06:03 | Inpatient (IN) | payer BC, SELFPAY ==
[2025-02-28 08:00] VITALS: PULSE 93; O2SAT 99
[2025-03-01] VITALS (144 sets, daily range): BP systolic 107–152; BP diastolic 52–118; PULSE 70–176; RESP 14–17; TEMP 36.4–36.7; O2SAT 94–100; BMI 43.1
--- NOTE | 2025-03-01 06:37 | WPDANESEPP ---
Anes - Eval Pre Procedure Procedure: labor epidural Date/Time: 03/01/25 06:37 Surgeon: tonya Preop Diagnosis: pain during labor Pre Op Diagnosis: IOL Patient Data Age: 29 Gender: F Height: Weight: Allergies Allergy/AdvReac Type Severity Reaction Status Date / Time No Known Allergies Allergy Verified 02/26/25 14:11 Home Medications ?Medication ?Instructions ?Recorded ?Confirmed ?Type prenat.vits,dennis,jaf-ccay-ytnuo tablet PO 07/31/24 02/26/25 History sertraline 50 mg tablet 50 mg PO DAILY #90 tabs 02/26/25 02/26/25 Rx Patient hx anesthesia problems: none Family hx anesthesia problems: none Results Review: All pre-operative results and documents have been reviewed as part of the pre-operative evaluation. [facility] Past Medical History Medical History Abnormal glucose tolerance in Irregular periods Morbid obesity with BMI of 40.0-44.9, adult Suppression of menstruation AUDREY positive Surgical History Surgical History History of hysteroscopy (01/01/22) Suction D&C / Missed AB History of gynecological procedure (01/25/20) dick iud removal History of gynecological procedure (03/08/19) dick iud insertion Family History Family History Mother Diabetes mellitus Grandparent Diabetes mellitus Other Breast cancer Father Heart disease Social History Social History Smoking status: Never smoker Second hand tobacco smoke exposure: No Alcohol intake: former Alcohol use details: RARE Substance use: never Substance use type: does not use Do You Feel Safe in your Home?: Yes Lack of Transportation: No Lack of Food: Never True Current Housing: I Have Housing Concerned About Future Housing: No Difficulty Paying Gas/Electric Bills: No Difficulty Paying for Meds: No Currently Unemployed: No Education: Bachelor's Degree Difficulty w/ Childcare or Family Care: No Living arrangements: with family Additional living arrangements comments: Occupation/Education: occupation Additional occupation/education comments: engineering Gender identity (if verbalized by the patient): Female Sexual Orientation (if Verbalized by the Patient): Straight or Heterosexual Spiritual care concerns: No Exam Day of Procedure 03/01/25 06:37
--- NOTE | 2025-03-01 06:41 | LDADM ---
This patient, Karis Sandoval, was admitted to Labor/Delivery/Recovery 106 on 03/01/25 at 06:03. Plans for labor, pain management and were discussed with patient. Patient/family oriented to hospital policies and general routines including ID bracelet, bed and alarms, visiting hours, pain management, procedures, bathroom and other care routines, personal items, smoking policy, room service/diet and guest tray routines, infant security routines, and visiting hours. Patient/Family are encouraged to report perceived risks to care and to ask questions if they do not understand what they are told or what they should do. See OBIX for further documentation.
[2025-03-01 06:53] LABS: Hematocrit 33.2 % (37.0-47.0); Hemoglobin 11.0 g/dL (12.0-15.0); Immature Granulocyte Percent A 0.4 % (0-0.5); Lymphocytes Absolute Auto 2.89 K/mm3 (0.9-3.2); Mean Corpuscular HGB Conc 33.1 g/dl (32-36); Mean Corpuscular Hemoglobin 26.6 pg (26-34); Mean Corpuscular Volume 80.4 fl (80-100); Nucleated Red Blood Cells Absolute Auto 0.000 K/mm3 (0.0-0.012); Nucleated Red Blood Cells Perc 0.0 % (0.0-0.2); Platelet Count Result 284 k/mm3 (150-375); Red Blood Count 4.13 M/mm3 (4.2-5.4); White Blood Count 14.1 K/mm3 (4.5-10.0)
[2025-03-01] MEDS: LACTATED RINGERS 1,000 ML 125 ML IV CONT ×3 (06:55→09:15)
[2025-03-01] MEDS: OXYTOCIN 30 UNITS/NS 500 ML 30 UNITS/500 ML BAG IV CONT (07:00)
[2025-03-01 08:30] LABS: Syphilis IgG/IgM Antibody Non-Reactive (Nonreactive)
--- NOTE | 2025-03-01 11:30 | PM.OBPRVD ---
OB - Vaginal Delivery Note Procedure Delivery date: 03/01/25 Induction method: AROM and Per Pitocin Protocol Delivery monitor: External FHT and External Uterine Route of delivery: Episiotomy description: None Laceration Description: None Specimen: No Quantitative Blood Loss (ml): 300 Anesthesia type: Epidural Disposition: PACU Complications: No immediate complications Narrative: Patient prepped and draped usual manner for this procedure. Maternal expulsive efforts readily delivered vertex. Nuchal cord was noted and reduced. Rest of baby was delivered cord was clamped and cut and placenta delivered spontaneously. Cervix vagina vulva were inspected with no lacerations or tears. Uterus was well contracted. No significant bleeding. Immediate postoperative condition of mother baby both excellent. Baby Gestational Age by Date: 39 gender: Female presentation: vertex position: Right Occiput Anterior Placenta delivery description: Spontaneous Cord Vessel Description: 3 Vessels, Nuchal Cord, Loose and Reduced
[2025-03-01] MEDS: OXYTOCIN 30 UNITS/NS 500 ML 30 UNITS/500 ML BAG 125 UNITS IV CONT (12:02)
--- NOTE | 2025-03-01 14:28 | OBPPTRN ---
1355- Patient transferred to post room #281 via . Support person present. Oriented to unit, room, information board, rooming in, admission packet and security measures. Patient verbalizes understanding.
--- NOTE | 2025-03-01 17:42 | PC.NURSE ---
3410- This RN spoke with Dr. Peter- order received for Zoloft 50mg qhs. This pt is currently taking Zoloft and there was not an order to give while inpt. Also notified Dr. Paul that pts SL infiltrated and bag of pitocin for pp was not fully infused. Dr. Paul stated this was ok and to monitor pt for bleeding.
[2025-03-01] MEDS: IBUPROFEN 600 MG TABLET PO (19:25)
[2025-03-01] MEDS: ACETAMINOPHEN 325 MG TABLET 650 MG PO (20:05)
[2025-03-01] MEDS: SERTRALINE HCL 50 MG TABLET PO (21:05)
[2025-03-02 04:59] LABS: Hematocrit 32.5 % (37.0-47.0); Hemoglobin 10.5 g/dL (12.0-15.0)
--- NOTE | 2025-03-02 07:39 | P.DS_ITS ---
DS: Admitting Diagnosis Discharge Date 03/02/25 Admitting Diagnosis intrauterine at term DS: Discharge Diagnosis Discharge Diagnosis (1) Normal vaginal delivery: Code(s): O80 - Encounter for full-term uncomplicated delivery Status: Acute OB - DS: Summary OB Procedures : None OB Procedures Intrapartum: Spontaneous Vag Delivery OB Procedures: : None Peripartum Data Laceration Description: None Episiotomy description: None Status at Discharge Functional status at discharge: independent ambulation Overall status at discharge: patient is back to baseline Time Spent with Patient Time attestation: Total time spent providing and/or coordinating discharge services: Time spent: Less than 30 minutes Exam Const: General: comfortable and no acute distress Resp: Effort & Inspection: normal respiratory effort Auscultation: clear to auscultation bilaterally Cardio: Rate: regular rate GI: GI Palp: Yes Soft to palpation Auscultation: normal bowel sounds Other: Fundus firm below umbilicus Psych: Appearance: grossly normal Mental Status: mental status grossly normal Affect: normal affect DS: Data Data Completed and Pending Labs on day of discharge: Labs from last 24 hours 03/02/25 03/01/25 04:21 06:43 Hgb 10.5 L Hct 32.5 L Syphilis IgG/IgM Ab Non-reactive Discharge Plan Discharge Discharging Clinician: Zachary Zelaya Patient Disposition: Home Activity: as tolerated and pelvic rest Diet: regular Patient Instructions: Antibiotic Form, Vaginal Delivery (DC) Patient Language: Lithuanian Stand Alone Forms: General Discharge Information Follow-up/Referrals: Marciano Mitchell MD [Physician, CYBER SECURITY CONSULTANT] Discharge Medications: New acetaminophen 500 mg tablet 500 mg PO Q6H PRN (Reason: pain) Qty: 30 0RF ibuprofen 600 mg tablet 600 mg PO Q6H PRN (Reason: pain) Qty: 30 0RF Continued prenat.vits,dennis,xrv-gsrd-qjuzd Tablet 1 tablet PO DAILY@0630 sertraline 50 mg tablet 50 mg PO DAILY Qty: 90 2RF Date of admission: 03/01/25 06:03 Primary Care Provider: Jeramy Lozoya Admitting Provider: Marciano Mitchell Attending physician on admission: Marciano Mitchell Condition: Stable
[2025-03-02 08:30] VITALS: BP 129/87; PULSE 87; RESP 16; TEMP 37.2; O2SAT 94
[2025-03-02] MEDS: MULTIVIT/MIN/PREN/FOL AC/IRON TABLET 1 TAB PO (08:30)
--- NOTE | 2025-03-02 10:30 | PC.NURSE ---
Consulted with mother concerning needs and she shared her ability to independently latch infant optimally without pain. Mother is feeding appropriately for growth of and understands stimulating to eat if needed. Infant has had appropriate feedings in the last 24 hours meets the outcomes for weight, output, blood sugar and jaundice at this time. Reinforced understanding of signs of adequate intake, transition of stool, prevention/relief of engorgement, plugged ducts, mastitis, community resources, and when to call a provider using the resource of the feeding sheet along with the mom and baby guide. She has a breast pump at home. Mother voiced understanding of the information shared, is confident to continue effectively her infant at home, when to call for assistance, denies any additional assistance or education at this time. Reported to the Primary RN.
--- NOTE | 2025-03-02 12:00 | PC.NURSE ---
Patient has not been able to wake baby to feed in 4 hours. She has tried a few times and can get a latch but baby refuses to suck. We tried again to wake baby and she opened her eyes but did not give feeding cues. We placed her in football on the left breast. Mom is able to latch baby easily and baby gives a few weak sucks but doesn't begin any rhythmic suck swallow breathe pattern. We tried to stimulate baby to suck while she was latched but she was sleepy and gave no more effort. Reviewed with mom that she should have at least 8 feedings every 24 hours. Some may be a little further apart and some closer together, especially in the evenings and nights. This is her 3rd baby to breastfeed and she feels confident with how feedings have been going so far. Primary RN updated.
--- NOTE | 2025-03-02 13:13 | WPDANLDPN2 ---
Anes-Prog Note L&D Date/Time: 03/02/25 13:13 Comfortable throughout: labor and delivery Neuraxial method: epidural Epidural/Spinal procedure site: clean & non-tender Neuro status: Neuro function grossly intact. Cardiovascular status: normal Respiratory status: normal Airway patency: baseline Mental status: baseline Post-Op hydration status: normal Vital Signs: Last Vital Signs Temp 37.2 C 03/02/25 08:30 Pulse 87 03/02/25 08:30 Resp 16 03/02/25 08:30 BP 129/87 03/02/25 08:30 Pulse Ox 94 03/02/25 08:30 O2 Del Method Room Air 03/01/25 23:20 Pain score (VAS): 1 Post-procedural complaints: none Patient feedback: Patient satisfied with anesthetic care.
[2025-03-05 10:27] VITALS: BP 140/67; PULSE 99; RESP 18; TEMP 36.8; O2SAT 100
== END 2025-03-02 14:12 | disposition home or self-care (01) | DRG 807 ==
LOC: ANHOB2 03-02 13:30 → ANHLDR 03-05 09:56 → ANHOB2 03-05 09:56
PROVIDERS: Admitting Provider Obstetrics & Gynecology; PCP Nurse Practitioner Family; Visit Provider Student in an Organized Health Care Education/Training Program
DX: O69.81X0 Labor and delivery complicated by cord around neck, without compression, not applicable or unspecified (principal); Z37.0 Single live birth; Z3A.39 39 weeks gestation of pregnancy; O62.3 Precipitate labor
CPT/HCPCS: 36415; 85014; 85018; 85025; 86593; 86850; 86900; 86901; A9270; J2590; J2795; J7120